=== PATIENT | female | born 1950 | race African-American/Black ===

== ENCOUNTER 2016-09-12 11:57 | Inpatient (IN) | payer MEDICARE, MEDICAID ==
[~2016-09-12] VITALS: Ht 160 cm; Wt 72.5 kg
[~2016-09-12 11:57] MED LIST: AMLO10TA2 PO; BACL-19 PO; FLUT1DIS IH; HYDR-3138 PO; HYDR12.58 PO; HYDR1TAB12 PO; IPRA3AMP NEB; NEBI5TAB2 PO; PRED10TA PO; ROSU10TA PO; TIOT4MIS2 INH; WARF4TAB7 PO
[2016-09-12] MEDS ORDERED: SODIUM CHLORIDE 0.9% 1,000 ML IV ONE (13:12)
[2016-09-12] MEDS ORDERED: methylPREDNISolone SOD SUCC 125 MG/2 ML IVP ONE (13:30)
[2016-09-12] MEDS ORDERED: SODIUM CHLORIDE FLUSH 10ML SYR IVF ONE (13:30)
[2016-09-12] MEDS ORDERED: MORPHINE SULFATE 4 MG/ML, 1ML IVPush PRN (13:30)
[2016-09-12] MEDS ORDERED: BENZONATATE 100 MG CAPSULE PO ONE (13:30)
[2016-09-12] MEDS ORDERED: ALBUTEROL SULFATE 2.5 MG/3 ML NPPB ONE (13:30)
[2016-09-12] MEDS ORDERED: ALBUTEROL SULFATE 2.5 MG/3 ML ONE (13:35)
[2016-09-12 13:40] LABS: BLOOD UREA NITROGEN 9 mg/dL (7-18)
[2016-09-12 13:46] LABS: IS PT STATUS REG ER OR PRE ER? YES
[2016-09-12] MEDS ORDERED: methylPREDNISolone SOD SUCC 125 MG/2 ML ONE (14:16)
[2016-09-12] MEDS ORDERED: POTASSIUM CHLORIDE 20 MEQ TAB.ER.PRT PO ONE (14:30)
[2016-09-12] MEDS ORDERED: HYDROcodone/APAP 5/325 TABLET ONE (14:41)
[2016-09-12] MEDS ORDERED: POTASSIUM CHLORIDE 20 MEQ TAB.ER.PRT ONE (14:41)
[2016-09-12] MEDS ORDERED: GUAIFENESIN/DM 200-20MG, 10ML UDC PO PRN (15:00)
[2016-09-12] MEDS ORDERED: BISACODYL 10 MG SUPP PR PRN (15:00)
[2016-09-12] MEDS ORDERED: PROMETHAZINE 25 MG/ML, 1ML IM PRN (15:00)
[2016-09-12] MEDS ORDERED: ZOLPIDEM 5MG TABLET PO PRN (15:00)
[2016-09-12] MEDS ORDERED: HYDROcodone/APAP 5/325 TABLET PO ONE (15:00)
[2016-09-12] MEDS ORDERED: ACETAMINOPHEN 325 MG TABLET PO PRN (15:00)
[2016-09-12] MEDS ORDERED: morphine SULFATE 10 MG/ML, 1ML IVPush PRN (15:00)
[2016-09-12] MEDS ORDERED: POLYETHYLENE GLYCOL 17 GM PACKET PO PRN (15:00)
[2016-09-12] MEDS ORDERED: DOCUSATE 100 MG CAPSULE PO PRN (15:00)
[2016-09-12] MEDS ORDERED: ONDANSETRON 2MG/ML, 2ML IVPush PRN (15:00)
[2016-09-12] MEDS ORDERED: ALBUTEROL/IPRATROPIUM 2.5MG/0.5MG, 3 ML ONE (15:56)
[2016-09-12 16:15] VITALS: BP 127/70
[2016-09-12] MEDS: BENZONATATE 100 MG CAPSULE PO SCH ×2 (16:38→20:14)
[2016-09-12] MEDS: methylPREDNISolone SOD SUCC 125 MG/2 ML IVPush SCH ×2 (16:38→22:07)
[2016-09-12] MEDS: DOXYCYCLINE 100 MG in DEXTROSE 5% 250 ML IV SCH (16:38)
[2016-09-12] MEDS: WARFARIN 2 MG TABLET PO-COUM SCH (17:59)
[2016-09-12 19:31] VITALS: BP 123/61
[2016-09-12] MEDS: ALBUTEROL/IPRATROPIUM 2.5MG/0.5MG, 3 ML NPPB SCH ×2 (20:00→22:34)
[2016-09-12] MEDS: SODIUM CHLORIDE FLUSH 3ML SYRINGE IVF SCH (20:13)
[2016-09-12] MEDS: ATORVASTATIN 20 MG TABLET PO SCH (20:14)
[2016-09-12] MEDS: FLUTICASONE NASAL SPRAY 16GM NAS SCH (20:14)
[2016-09-13 01:36] VITALS: BP 118/59
[2016-09-13] MEDS: DOXYCYCLINE 100 MG in DEXTROSE 5% 250 ML IV SCH (02:05)
[2016-09-13] MEDS: methylPREDNISolone SOD SUCC 125 MG/2 ML IVPush SCH ×4 (03:51→22:11)
[2016-09-13 05:10] LABS: ASPARTATE AMINO TRANSFERASE 26 U/L (15-37); BLOOD UREA NITROGEN 17 mg/dL (7-18)
[2016-09-13 06:46] VITALS: BP 128/75
[2016-09-13] MEDS: ALBUTEROL/IPRATROPIUM 2.5MG/0.5MG, 3 ML NPPB SCH ×4 (07:00→19:51)
[2016-09-13] MEDS: SODIUM CHLORIDE FLUSH 3ML SYRINGE IVF SCH ×2 (09:00→20:33)
[2016-09-13] MEDS: FLUTICASONE NASAL SPRAY 16GM NAS SCH ×2 (10:02→20:33)
[2016-09-13] MEDS: AMLODIPINE 5 MG TABLET PO SCH (10:02)
[2016-09-13] MEDS: HYDROCHLOROTHIAZIDE 12.5 MG CAPSULE PO SCH (10:03)
[2016-09-13] MEDS: CETIRIZINE 10 MG TABLET PO SCH (10:03)
[2016-09-13] MEDS: BENZONATATE 100 MG CAPSULE PO SCH ×3 (10:09→20:33)
[2016-09-13] MEDS: FLUTICASONE/VILANTEROL 200-25MCG/INH INH SCH (10:23)
[2016-09-13] MEDS: DOXYCYCLINE 100MG TABLET PO SCH ×2 (12:07→20:33)
[2016-09-13 16:09] VITALS: BP 121/63
[2016-09-13] MEDS: HYDROcodone/APAP 5/325 TABLET PO PRN (16:37)
[2016-09-13] MEDS: WARFARIN 2 MG TABLET PO-COUM SCH (17:45)
[2016-09-13 19:30] VITALS: BP 133/73
[2016-09-13] MEDS: ATORVASTATIN 20 MG TABLET PO SCH (20:33)
[2016-09-14 02:12] VITALS: BP 119/64
[2016-09-14] MEDS: methylPREDNISolone SOD SUCC 125 MG/2 ML IVPush SCH ×2 (04:11→10:23)
[2016-09-14] MEDS: ALBUTEROL/IPRATROPIUM 2.5MG/0.5MG, 3 ML NPPB SCH ×3 (07:00→14:39)
[2016-09-14 07:29] VITALS: BP 114/55
[2016-09-14] MEDS: FLUTICASONE NASAL SPRAY 16GM NAS SCH (08:53)
[2016-09-14] MEDS: SODIUM CHLORIDE FLUSH 3ML SYRINGE IVF SCH (08:54)
[2016-09-14] MEDS: CETIRIZINE 10 MG TABLET PO SCH (08:54)
[2016-09-14] MEDS: HYDROCHLOROTHIAZIDE 12.5 MG CAPSULE PO SCH (08:54)
[2016-09-14] MEDS: AMLODIPINE 5 MG TABLET PO SCH (08:54)
[2016-09-14] MEDS: BENZONATATE 100 MG CAPSULE PO SCH (08:54)
[2016-09-14] MEDS: FLUTICASONE/VILANTEROL 200-25MCG/INH INH SCH (08:54)
[2016-09-14] MEDS: DOXYCYCLINE 100MG TABLET PO SCH (08:54)
[2016-09-14] MEDS: HYDROcodone/APAP 5/325 TABLET PO PRN ×2 (08:54→12:47)
[2016-09-14] MEDS ORDERED: METH4TAB2 PO (11:13)
[2016-09-14] MEDS ORDERED: CETI10CA PO (11:13)
[2016-09-14] MEDS ORDERED: BENZ100C4 PO (11:13)
[2016-09-14] MEDS ORDERED: GUAI5SYR PO (11:13)
[2016-09-14] MEDS ORDERED: DOXY100C2 PO (11:13)
[2016-09-14 12:49] VITALS: BP 160/77
== END 2016-09-14 15:30 | disposition home or self-care (01) | DRG 189 ==
LOC: ED 14:32 → EDIP 14:34 → ED 14:56 → SUATTDRO 14:58 → 3NW 15:50 → DCLOUNGE 09-14 15:22
DX: J96.21 Acute and chronic respiratory failure with hypoxia (principal); J44.0 Chronic obstructive pulmonary disease with (acute) lower respiratory infection; J44.1 Chronic obstructive pulmonary disease with (acute) exacerbation; D86.9 Sarcoidosis, unspecified; E78.5 Hyperlipidemia, unspecified; E87.6 Hypokalemia; I11.0 Hypertensive heart disease with heart failure; G89.29 Other chronic pain; M54.9 Dorsalgia, unspecified; I50.9 Heart failure, unspecified; J20.9 Acute bronchitis, unspecified; Z79.01 Long term (current) use of anticoagulants; Z82.49 Family history of ischemic heart disease and other diseases of the circulatory system; Z86.711 Personal history of pulmonary embolism; Z86.718 Personal history of other venous thrombosis and embolism; Z87.891 Personal history of nicotine dependence; Z99.81 Dependence on supplemental oxygen; Z79.899 Other long term (current) drug therapy; Z80.42 Family history of malignant neoplasm of prostate
CPT/HCPCS: 36415; 71010; 80048; 80053; 82040; 83735; 83880; 84484; 85025; 85610; 87070; 87205; 93005; 94640; 96374; J7060; J7613; J7620; J2930; J7030

== ENCOUNTER 2016-09-20 13:05 | Inpatient (IN) | payer MEDICARE, MEDICAID ==
[~2016-09-20] VITALS: Ht 160 cm; Wt 73.2 kg
[~2016-09-20 13:05] MED LIST changes: +BENZ100C4 PO; +CETI10CA PO; +DOXY100C2 PO; +GUAI5SYR PO; +METH4TAB2 PO
[2016-09-20] MEDS ORDERED: ONDANSETRON 2MG/ML, 2ML IVPush ONE (13:30)
[2016-09-20] MEDS ORDERED: SODIUM CHLORIDE 0.9% 1,000ML IVBOLUS ONE (13:30)
[2016-09-20] MEDS ORDERED: HYDROmorphone 1 MG/ML, 1ML IVPush PRN (13:30)
[2016-09-20] MEDS ORDERED: SODIUM CHLORIDE FLUSH 10ML SYR IVF ONE (13:30)
[2016-09-20] MEDS ORDERED: ONDANSETRON 2MG/ML, 2ML ONE (13:31)
[2016-09-20] MEDS ORDERED: HYDROmorphone 1 MG/ML, 1ML ONE (13:31)
[2016-09-20 13:39] LABS: PATH.CAST-FLAG NOT PRESENT; SPERM-FLAG NOT PRESENT; SRC-FLAG NOT PRESENT; XTAL-FLAG NOT PRESENT; YLC-FLAG NOT PRESENT
[2016-09-20 14:03] LABS: ASPARTATE AMINO TRANSFERASE 19 U/L (15-37); BLOOD UREA NITROGEN 12 mg/dL (7-18)
[2016-09-20] MEDS ORDERED: OMNIPAQUE 350 MG/ML, 100ML BOTTLE ONE (14:47)
[2016-09-20] MEDS ORDERED: ALBU8.5H3 INH (16:27)
[2016-09-20] MEDS ORDERED: BACL-19 PO (16:27)
[2016-09-20] MEDS ORDERED: FLUT1AER INH (16:27)
[2016-09-20] MEDS ORDERED: LABETALOL 5MG/ML, 20ML IVPush PRN (17:30)
[2016-09-20] MEDS ORDERED: ONDANSETRON 2MG/ML, 2ML IVPush PRN (17:30)
[2016-09-20] MEDS ORDERED: BISACODYL 10 MG SUPP PR PRN (17:30)
[2016-09-20] MEDS ORDERED: ACETAMINOPHEN 325 MG TABLET PO PRN (17:30)
[2016-09-20] MEDS ORDERED: DOCUSATE 100 MG CAPSULE PO PRN (17:30)
[2016-09-20] MEDS: morphine SULFATE 10 MG/ML, 1ML IVPush PRN ×2 (17:55→21:08)
[2016-09-20] MEDS ORDERED: WARFARIN 1 MG TABLET PO-COUM ONE (18:00)
[2016-09-20 18:12] VITALS: BP 142/76
[2016-09-20] MEDS: CEFTRIAXONE PMX 1GM/50ML 50 ML IV SCH (18:49)
[2016-09-20 19:35] VITALS: BP 137/71
[2016-09-20] MEDS: AZITHROMYCIN 500 MG in SODIUM CHLORIDE 0.9% 250 ML IV SCH (20:29)
[2016-09-20] MEDS: ROSUVASTATIN CALCIUM 10 MG PO SCH (21:00)
[2016-09-20] MEDS ORDERED: ALBUTEROL SULFATE 2.5 MG/3 ML NPPB PRN (21:00)
[2016-09-20] MEDS ORDERED: TEMPLATE NON-FORMULARY MED. (Warfarin Sodium** 2 MG) PO SCH (21:00)
[2016-09-20] MEDS: GUAIFENESIN ER 600 MG TABLET PO SCH (21:08)
[2016-09-20] MEDS: SODIUM CHLORIDE FLUSH 3ML SYRINGE IVF SCH (21:08)
[2016-09-21 02:00] VITALS: BP 123/67
[2016-09-21] MEDS: morphine SULFATE 10 MG/ML, 1ML IVPush PRN ×2 (04:30→08:36)
[2016-09-21 05:29] LABS: BLOOD UREA NITROGEN 17 mg/dL (7-18)
[2016-09-21 06:51] VITALS: BP 133/65
[2016-09-21] MEDS: ALBUTEROL/IPRATROPIUM 2.5MG/0.5MG, 3 ML NPPB SCH ×4 (07:45→18:50)
[2016-09-21] MEDS: GUAIFENESIN ER 600 MG TABLET PO SCH ×2 (08:34→21:51)
[2016-09-21] MEDS: SODIUM CHLORIDE FLUSH 3ML SYRINGE IVF SCH ×2 (08:34→21:00)
[2016-09-21] MEDS: FUROSEMIDE 40 MG/4 ML IV SCH (08:35)
[2016-09-21] MEDS: BACLOFEN 10 MG TABLET PO SCH (08:35)
[2016-09-21] MEDS: AMLODIPINE 5 MG TABLET PO SCH (08:41)
[2016-09-21] MEDS ORDERED: (Fluticasone/Salmeterol** (Advair 100-50 Diskus**) 1 PUFF) IH SCH (09:00)
[2016-09-21] MEDS: FLUTICASONE/VILANTEROL 100-25MCG/INH INH SCH (11:08)
[2016-09-21 13:18] VITALS: BP 123/62
[2016-09-21] MEDS: CEFTRIAXONE PMX 1GM/50ML 50 ML IV SCH (16:50)
[2016-09-21] MEDS ORDERED: WARFARIN 1 MG TABLET PO-COUM ONE (18:00)
[2016-09-21 19:26] VITALS: BP 122/67
[2016-09-21] MEDS: ROSUVASTATIN CALCIUM 10 MG PO SCH (21:00)
[2016-09-21] MEDS ORDERED: ATORVASTATIN 20 MG TABLET PO SCH (21:00)
[2016-09-21] MEDS: AZITHROMYCIN 500 MG in SODIUM CHLORIDE 0.9% 250 ML IV SCH (21:51)
[2016-09-22 02:00] VITALS: BP 125/63
[2016-09-22 05:13] LABS: BLOOD UREA NITROGEN 21 mg/dL (7-18)
[2016-09-22] MEDS: HYDROcodone/APAP 5/325 TABLET PO PRN ×3 (05:19→17:38)
[2016-09-22 06:30] VITALS: BP 115/65
[2016-09-22] MEDS: ALBUTEROL/IPRATROPIUM 2.5MG/0.5MG, 3 ML NPPB SCH ×4 (07:30→18:54)
[2016-09-22] MEDS: FLUTICASONE/VILANTEROL 100-25MCG/INH INH SCH (07:56)
[2016-09-22] MEDS: GUAIFENESIN ER 600 MG TABLET PO SCH ×2 (07:57→20:05)
[2016-09-22] MEDS: FUROSEMIDE 40 MG/4 ML IV SCH (07:57)
[2016-09-22] MEDS: SODIUM CHLORIDE FLUSH 3ML SYRINGE IVF SCH ×2 (07:57→20:05)
[2016-09-22] MEDS: BACLOFEN 10 MG TABLET PO SCH (07:57)
[2016-09-22] MEDS: AMLODIPINE 5 MG TABLET PO SCH (07:58)
[2016-09-22] MEDS ORDERED: IPRATROPIUM 0.5 MG/2.5 ML INHA NPPB SCH (09:00)
[2016-09-22] MEDS ORDERED: FLUTICASONE/VILANTEROL 100-25MCG/INH INH SCH (09:00)
[2016-09-22] MEDS: POLYETHYLENE GLYCOL 17 GM PACKET PO PRN (10:59)
[2016-09-22 13:57] VITALS: BP 142/81
[2016-09-22] MEDS: CEFTRIAXONE PMX 1GM/50ML 50 ML IV SCH (17:37)
[2016-09-22] MEDS ORDERED: WARFARIN 1 MG TABLET PO-COUM ONE (18:00)
[2016-09-22 19:07] VITALS: BP 138/75
[2016-09-22] MEDS: SENNA/DOCUSATE TABLET PO SCH (20:05)
[2016-09-22] MEDS: AZITHROMYCIN 500 MG in SODIUM CHLORIDE 0.9% 250 ML IV SCH (20:05)
[2016-09-22] MEDS: ATORVASTATIN 20 MG TABLET PO SCH (20:05)
[2016-09-23 01:31] VITALS: BP 129/69
[2016-09-23] MEDS: HYDROcodone/APAP 5/325 TABLET PO PRN ×2 (06:46→16:34)
[2016-09-23] MEDS: ALBUTEROL/IPRATROPIUM 2.5MG/0.5MG, 3 ML NPPB SCH ×4 (07:44→19:23)
[2016-09-23 07:46] VITALS: BP 131/64
[2016-09-23] MEDS: FUROSEMIDE 40 MG/4 ML IV SCH (08:22)
[2016-09-23] MEDS: FLUTICASONE/VILANTEROL 100-25MCG/INH INH SCH (08:22)
[2016-09-23] MEDS: GUAIFENESIN ER 600 MG TABLET PO SCH ×2 (08:23→20:53)
[2016-09-23] MEDS: SENNA/DOCUSATE TABLET PO SCH ×2 (08:23→20:53)
[2016-09-23] MEDS: BACLOFEN 10 MG TABLET PO SCH (08:23)
[2016-09-23] MEDS: AMLODIPINE 5 MG TABLET PO SCH (08:23)
[2016-09-23] MEDS: SODIUM CHLORIDE FLUSH 3ML SYRINGE IVF SCH ×2 (08:24→21:00)
[2016-09-23 12:45] VITALS: BP 115/68
[2016-09-23] MEDS: POLYETHYLENE GLYCOL 17 GM PACKET PO PRN (16:34)
[2016-09-23] MEDS: CEFTRIAXONE PMX 1GM/50ML 50 ML IV SCH (17:36)
[2016-09-23] MEDS ORDERED: WARFARIN 2 MG TABLET PO-COUM ONE (18:00)
[2016-09-23] MEDS: ATORVASTATIN 20 MG TABLET PO SCH (20:53)
[2016-09-23] MEDS: AZITHROMYCIN 500 MG in SODIUM CHLORIDE 0.9% 250 ML IV SCH (20:53)
[2016-09-23 21:07] VITALS: BP 124/67
[2016-09-24 02:47] VITALS: BP 132/72
[2016-09-24] MEDS: HYDROcodone/APAP 5/325 TABLET PO PRN (02:53)
[2016-09-24] MEDS: ALBUTEROL/IPRATROPIUM 2.5MG/0.5MG, 3 ML NPPB SCH ×3 (07:34→12:17)
[2016-09-24 07:39] VITALS: BP 150/81
[2016-09-24] MEDS: FUROSEMIDE 40 MG/4 ML IV SCH (08:30)
[2016-09-24] MEDS: GUAIFENESIN ER 600 MG TABLET PO SCH (08:31)
[2016-09-24] MEDS: AMLODIPINE 5 MG TABLET PO SCH (08:31)
[2016-09-24] MEDS: FLUTICASONE/VILANTEROL 100-25MCG/INH INH SCH (08:31)
[2016-09-24] MEDS: SENNA/DOCUSATE TABLET PO SCH (08:31)
[2016-09-24] MEDS: BACLOFEN 10 MG TABLET PO SCH (08:31)
[2016-09-24] MEDS: SODIUM CHLORIDE FLUSH 3ML SYRINGE IVF SCH (08:32)
[2016-09-24] MEDS ORDERED: SENN1TAB7 PO (10:05)
[2016-09-24] MEDS ORDERED: CEFD300C37 PO (10:05)
[2016-09-24] MEDS ORDERED: GUAI600T22 PO (10:05)
[2016-09-24] MEDS ORDERED: DOXY-168 PO (10:05)
[2016-09-24] MEDS ORDERED: PRED5TAB PO (10:05)
[2016-09-24] MEDS ORDERED: OXYC-229 PO (10:06)
== END 2016-09-24 12:50 | disposition home or self-care (01) | DRG 292 ==
LOC: ED 13:54 → EDIP 16:19 → 3NE 17:28
PROVIDERS: ADMIT Internal Medicine; ATTEND Internal Medicine
DX: I11.0 Hypertensive heart disease with heart failure (principal); I31.3 Pericardial effusion (noninflammatory); J44.0 Chronic obstructive pulmonary disease with (acute) lower respiratory infection; J44.1 Chronic obstructive pulmonary disease with (acute) exacerbation; K42.9 Umbilical hernia without obstruction or gangrene; D25.9 Leiomyoma of uterus, unspecified; D86.9 Sarcoidosis, unspecified; I27.2 Other secondary pulmonary hypertension; I50.9 Heart failure, unspecified; G89.29 Other chronic pain; J20.9 Acute bronchitis, unspecified; M54.9 Dorsalgia, unspecified; Z79.899 Other long term (current) drug therapy; Z79.01 Long term (current) use of anticoagulants; Z87.891 Personal history of nicotine dependence; Z82.49 Family history of ischemic heart disease and other diseases of the circulatory system; Z86.711 Personal history of pulmonary embolism; Z86.718 Personal history of other venous thrombosis and embolism; Z99.81 Dependence on supplemental oxygen; Z80.9 Family history of malignant neoplasm, unspecified
CPT/HCPCS: 36415; 71010; 74177; 80048; 80053; 81001; 83605; 83690; 83735; 84100; 85025; 85610; 85651; 86140; 87040; 87070; 87077; 87086; 87186; 87205; 93306; 94640; 96361; 96374; 96375; J0456; J0696; J1170; J1940; J2405; J7620; Q9967; J2270; J7030; J7050; J7512

== ENCOUNTER 2018-03-06 18:37 | Inpatient (IN) | payer MEDICARE, MEDICAID ==
[~2018-03-06] VITALS: Ht 160 cm; Wt 75.3 kg
[~2018-03-06 18:37] MED LIST changes: +ALBU8.5H8 INH; -AMLO10TA2 PO; +AMLO10TA6 PO; +BENZ-17 PO; -BENZ100C4 PO; +BRIN8DRO OP; +CEFD300C37 PO; +DOXY100C15 PO; +DOXY100T PO; +DOXY100T10 PO; +FLUT1AER INH; +FLUT9.9S INH; +FURO-93 PO; +GUAI600T31 PO; -HYDR-3138 PO; +HYDR-3237 PO; -HYDR12.58 PO; +HYDROCHLOROTH12.5 MG PO; -IPRA3AMP NEB; +IPRA3AMP30 NEB; +LATA2.5D2 OP; -NEBI5TAB2 PO; +NEBI5TAB3 PO; +OXYC-307 PO; +POTA10TA11 PO; +PRED5TAB PO; +SENN1TAB8 PO; +WARF4TAB65 PO; -WARF4TAB7 PO
[2018-03-06] MEDS ORDERED: ACETAMINOPHEN 500 MG TABLET ONE (18:51)
[2018-03-06] MEDS ORDERED: ACETAMINOPHEN 500 MG TABLET PO ONE (19:00)
[2018-03-06 19:17] LABS: MEAN CORPUSCULAR HEMOGLOBIN 29.6 pg (27.0-34.8); MEAN CORPUSCULAR HGB CONC 33.3 g/dL (32.4-35.8); MEAN CORPUSCULAR VOLUME 88.8 fL (80-100); MEAN PLATELET VOLUME 9.8 fL (7.4-10.4); PLATELET COUNT 164 x10^3/uL (130-400); RED BLOOD COUNT 5.08 x10^6/uL (3.82-5.3); RED CELL DISTRIBUTION WIDTH 14.8 % (9.6-15.2)
[2018-03-06 19:27] LABS: ALANINE AMINOTRANSFERASE 38 U/L (12-78); ALBUMIN 3.6 g/dL (3.4-5.0); ANION GAP 10 mmol/L (5-15); CALCIUM 8.8 mg/dL (8.5-10.1); CHLORIDE 109 mmol/L (98-107); CREATININE 0.97 mg/dL (0.55-1.02)
[2018-03-06 19:29] LABS: ALKALINE PHOSPHATASE 89 U/L (45-117); BILIRUBIN,TOTAL 0.6 mg/dL (0.2-1.0); TOTAL PROTEIN 7.4 g/dL (6.4-8.2)
[2018-03-06 19:30] LABS: INTERNATIONAL NORMALIZED RATIO 2.15 (0.93-1.1); PROTHROMBIN TIME 22.1 Seconds (9.6-11.5)
[2018-03-06] MEDS ORDERED: CEFTRIAXONE PMX 1GM/50ML 50 ML IV ONE ×2 (19:30→21:00)
[2018-03-06] MEDS ORDERED: AZITHROMYCIN 500 MG in SODIUM CHLORIDE 0.9% 250 ML IV ONE (19:30)
[2018-03-06 19:34] LABS: RAPID INFLUENZA A Negative (Negative); RAPID INFLUENZA B Negative (Negative)
[2018-03-06] MEDS ORDERED: CEFTRIAXONE PMX 1GM/50ML 50 ML ONE (19:34)
[2018-03-06 19:49] LABS: BASOPHILS # (AUTO) 0.03 x10^3/uL (0-0.1); BASOPHILS % (AUTO) 0 % (0-1); EOSINOPHILS # (AUTO) 0.01 x10^3/uL (0-0.4); EOSINOPHILS % (AUTO) 0 % (1-7); LYMPHOCYTES # (AUTO) 0.76 x10^3/uL (1-3.4); LYMPHOCYTES % (AUTO) 4 % (22-44); MD SCAN; MONOCYTES # (AUTO) 0.52 x10^3/uL (0.2-0.8); MONOCYTES % (AUTO) 3 % (2-9); NEUTROPHILS # (AUTO) 17.64 x10^3/uL (1.8-6.8); NEUTROPHILS % (AUTO) 93 % (42-75)
[2018-03-06] MEDS ORDERED: POTASSIUM CHLORIDE 40 MEQ in SODIUM CHLORIDE 0.9% 500 ML IV ONE (20:00)
[2018-03-06] MEDS ORDERED: SODIUM CHLORIDE 0.9% 1,000 ML IV SCH (20:51)
[2018-03-06] MEDS ORDERED: hydrALAzine 20 MG/ML, 1ML IVPush PRN (21:00)
[2018-03-06] MEDS ORDERED: GABAPENTIN 300 MG CAPSULE PO PRN (21:00)
[2018-03-06] MEDS ORDERED: ONDANSETRON ODT 4 MG PO PRN (21:00)
[2018-03-06] MEDS ORDERED: PROMETHAZINE 25 MG/ML, 1ML IM PRN (21:00)
[2018-03-06] MEDS ORDERED: ONDANSETRON 2MG/ML, 2ML IVPush PRN (21:00)
[2018-03-06] MEDS ORDERED: POLYETHYLENE GLYCOL 17 GM PACKET PO PRN (21:00)
[2018-03-06] MEDS ORDERED: OXYcodone IR 5MG TABLET PO PRN (21:00)
[2018-03-06] MEDS ORDERED: DOCUSATE 100 MG CAPSULE PO PRN (21:00)
[2018-03-06] MEDS ORDERED: POTASSIUM CHLORIDE 20 MEQ TAB.ER.PRT PO ONE (21:00)
[2018-03-06] MEDS ORDERED: BISACODYL 10 MG SUPP PR PRN (21:00)
[2018-03-06] MEDS ORDERED: morphine SULFATE 10 MG/ML, 1ML IVPush PRN (21:00)
[2018-03-06] MEDS ORDERED: LABETALOL 5MG/ML, 20ML IVPush PRN (21:00)
[2018-03-06] MEDS ORDERED: ALBUTEROL SULFATE 2.5MG/0.5ML NPPB SCH (21:30)
[2018-03-06] MEDS ORDERED: ALBUTEROL/IPRATROPIUM 2.5MG/0.5MG, 3 ML NPPB PRN (21:30)
[2018-03-06] MEDS ORDERED: ALBUTEROL/IPRATROPIUM 2.5MG/0.5MG, 3 ML ONE (21:33)
[2018-03-06 21:35] LABS: FREE T4 (FREE THYROXINE) 0.98 ng/dL (0.76-1.46); THYROID STIMULATING HORMONE 0.718 mIU/L (0.358-3.740)
[2018-03-06 21:47] LABS: HEMOGLOBIN A1C 6.8 % (4.2-6.3)
[2018-03-06] MEDS: GUAIFENESIN ER 600 MG TABLET PO SCH (22:56)
[2018-03-06] MEDS: HEPARIN 5,000 UNITS/ML, 1ML SQ SCH (22:57)
[2018-03-06] MEDS: LATANOPROST OPHTH 0.005%, 2.5ML OP SCH (23:42)
[2018-03-06 23:57] VITALS: BP 114/63
[2018-03-07] MEDS: ALBUTEROL/IPRATROPIUM 2.5MG/0.5MG, 3 ML NPPB SCH ×4 (03:15→21:00)
[2018-03-07 03:55] VITALS: BP 112/58
[2018-03-07 05:23] LABS: MEAN CORPUSCULAR HEMOGLOBIN 29.3 pg (27.0-34.8); MEAN CORPUSCULAR HGB CONC 32.9 g/dL (32.4-35.8); MEAN CORPUSCULAR VOLUME 89.2 fL (80-100); MEAN PLATELET VOLUME 10.1 fL (7.4-10.4); PLATELET COUNT 162 x10^3/uL (130-400); RED BLOOD COUNT 4.64 x10^6/uL (3.82-5.3); RED CELL DISTRIBUTION WIDTH 15.1 % (9.6-15.2)
[2018-03-07 05:43] LABS: CHLORIDE 109 mmol/L (98-107)
[2018-03-07 05:52] LABS: ALANINE AMINOTRANSFERASE 29 U/L (12-78); ALBUMIN 3.2 g/dL (3.4-5.0); ALKALINE PHOSPHATASE 69 U/L (45-117); ANION GAP 12 mmol/L (5-15); BILIRUBIN,TOTAL 0.8 mg/dL (0.2-1.0); CALCIUM 8.1 mg/dL (8.5-10.1); CHOLESTEROL, TOTAL 83 mg/dL (140-239); CREATININE 0.97 mg/dL (0.55-1.02); HDL CHOL % 49 % (28-40); HDL CHOLESTEROL (DIRECT) 41 mg/dL (40-60); LDL CHOLESTEROL,CALCULATED 32 mg/dL (54-169); LDL/HDL RATIO 0.8 (0.5-3.0); TOTAL PROTEIN 6.5 g/dL (6.4-8.2); TRIGLYCERIDES 49 mg/dL (50-200); VLDL CHOLESTEROL 10 mg/dL (0-25)
[2018-03-07 05:53] LABS: MD YES
[2018-03-07 05:55] LABS: ANISOCYTOSIS 1+; BAND#(MANUAL) 3.74 x10^3/uL; BANDS%(MANUAL) 14 % (0-7); LYMPHS% (MANUAL) 6 % (22-44); MONOS#(MANUAL) 0.27 x10^3/uL (0.3-2.7); MONOS% (MANUAL) 1 % (2-9); SEG#(MANUAL) 21.09 x10^3/uL (1.8-6.8); SEGS% (MANUAL) 79 % (42-75)
[2018-03-07 05:56] LABS: <PLATELET ESTIMATE> ADEQUATE; <PLT MORPHOLOGY> NORMAL PLT MORPH
[2018-03-07 06:48] VITALS: BP 101/51
[2018-03-07] MEDS: GUAIFENESIN ER 600 MG TABLET PO SCH ×2 (07:47→20:46)
[2018-03-07] MEDS: AMLODIPINE 10 MG TAB PO SCH (07:47)
[2018-03-07] MEDS: HEPARIN 5,000 UNITS/ML, 1ML SQ SCH ×3 (07:47→23:04)
[2018-03-07] MEDS: HYDROCHLOROTHIAZIDE 12.5 MG CAPSULE PO SCH (07:47)
[2018-03-07] MEDS ORDERED: FLUTICASONE/VILANTEROL 100-25MCG/INH INH SCH (09:00)
[2018-03-07] MEDS ORDERED: TIOTROPIUM BROMIDE 18 MCG INH SCH (09:00)
[2018-03-07] MEDS: BUDESONIDE 0.5 MG/2 ML INHA NPPB SCH ×2 (09:00→21:00)
[2018-03-07] MEDS: FLUTICASONE NASAL SPRAY 16GM NAS SCH (10:03)
[2018-03-07] MEDS ORDERED: OMNIPAQUE 350 MG/ML, 75ML BOTTLE ONE (11:13)
[2018-03-07] MEDS: methylPREDNISolone SOD SUCC 125 MG/2 ML IVPush SCH ×3 (11:56→22:04)
[2018-03-07 12:11] VITALS: BP 120/62
[2018-03-07] MEDS ORDERED: AZITHROMYCIN 500 MG in SODIUM CHLORIDE 0.9% 250 ML IV SCH (17:00)
[2018-03-07] MEDS ORDERED: CEFTRIAXONE PMX 2GM/50ML 50 ML IV SCH (19:00)
[2018-03-07 19:48] VITALS: BP 100/56
[2018-03-07] MEDS: ATORVASTATIN 20 MG TABLET PO SCH (20:46)
[2018-03-07] MEDS: LATANOPROST OPHTH 0.005%, 2.5ML OP SCH (21:03)
[2018-03-08 02:28] VITALS: BP 106/64
[2018-03-08] MEDS: ALBUTEROL/IPRATROPIUM 2.5MG/0.5MG, 3 ML NPPB SCH ×4 (03:00→20:30)
[2018-03-08] MEDS: methylPREDNISolone SOD SUCC 125 MG/2 ML IVPush SCH (04:43)
[2018-03-08 06:14] LABS: ANION GAP 8 mmol/L (5-15); CALCIUM 9.5 mg/dL (8.5-10.1); CHLORIDE 112 mmol/L (98-107)
[2018-03-08 06:18] LABS: MEAN CORPUSCULAR HEMOGLOBIN 31.1 pg (27.0-34.8); MEAN CORPUSCULAR HGB CONC 34.1 g/dL (32.4-35.8); MEAN CORPUSCULAR VOLUME 91.1 fL (80-100); PLATELET COUNT 160 x10^3/uL (130-400)
[2018-03-08 07:15] VITALS: BP 105/63
[2018-03-08] MEDS: BUDESONIDE 0.5 MG/2 ML INHA NPPB SCH ×2 (07:18→20:30)
[2018-03-08 08:24] LABS: BASOPHILS # (AUTO) 0.08 x10^3/uL (0-0.1); BASOPHILS % (AUTO) 0 % (0-1); EOSINOPHILS % (AUTO) 0 % (1-7); LYMPHOCYTES # (AUTO) 0.74 x10^3/uL (1-3.4); LYMPHOCYTES % (AUTO) 4 % (22-44); MD SCAN; MONOCYTES # (AUTO) 0.21 x10^3/uL (0.2-0.8); MONOCYTES % (AUTO) 1 % (2-9); NEUTROPHILS # (AUTO) 19.65 x10^3/uL (1.8-6.8); NEUTROPHILS % (AUTO) 95 % (42-75)
[2018-03-08] MEDS: POTASSIUM CHLORIDE 10 MEQ in SODIUM CHLORIDE 0.9% 1,000 ML IV SCH ×2 (10:35→23:58)
[2018-03-08] MEDS: LEVOFLOXACIN/PMX 750MG/150ML 150 ML IV SCH (10:35)
[2018-03-08] MEDS: HYDROCHLOROTHIAZIDE 12.5 MG CAPSULE PO SCH (10:36)
[2018-03-08] MEDS: methylPREDNISolone SOD SUCC 40 MG/ML IVPush SCH ×2 (10:36→21:42)
[2018-03-08] MEDS: FLUTICASONE NASAL SPRAY 16GM NAS SCH (10:36)
[2018-03-08] MEDS: AMLODIPINE 10 MG TAB PO SCH (10:36)
[2018-03-08] MEDS: GUAIFENESIN ER 600 MG TABLET PO SCH ×2 (10:36→21:43)
[2018-03-08] MEDS: HEPARIN 5,000 UNITS/ML, 1ML SQ SCH ×4 (10:43→23:58)
[2018-03-08 13:25] VITALS: BP 121/67
[2018-03-08 18:43] VITALS: BP 127/65
[2018-03-08] MEDS: LATANOPROST OPHTH 0.005%, 2.5ML OP SCH (21:42)
[2018-03-08] MEDS: ATORVASTATIN 20 MG TABLET PO SCH (21:43)
[2018-03-09 00:53] VITALS: BP 117/65
[2018-03-09] MEDS: ALBUTEROL/IPRATROPIUM 2.5MG/0.5MG, 3 ML NPPB SCH ×4 (02:22→20:59)
[2018-03-09 06:31] LABS: ALBUMIN 2.9 g/dL (3.4-5.0); ANION GAP 8 mmol/L (5-15); CALCIUM 8.6 mg/dL (8.5-10.1); CHLORIDE 114 mmol/L (98-107); CREATININE 0.92 mg/dL (0.55-1.02)
[2018-03-09 07:04] LABS: MEAN CORPUSCULAR HEMOGLOBIN 31.5 pg (27.0-34.8); MEAN CORPUSCULAR HGB CONC 34.7 g/dL (32.4-35.8); MEAN CORPUSCULAR VOLUME 90.8 fL (80-100); PLATELET COUNT 169 x10^3/uL (130-400); RED BLOOD COUNT 4.21 x10^6/uL (3.82-5.3); RED CELL DISTRIBUTION WIDTH 15.2 % (9.6-15.2)
[2018-03-09 07:39] LABS: BASOPHILS % (AUTO) 0 % (0-1); EOSINOPHILS # (AUTO) 0.01 x10^3/uL (0-0.4); EOSINOPHILS % (AUTO) 0 % (1-7); LYMPHOCYTES # (AUTO) 0.25 x10^3/uL (1-3.4); LYMPHOCYTES % (AUTO) 2 % (22-44); MD SCAN; MONOCYTES # (AUTO) 0.19 x10^3/uL (0.2-0.8); MONOCYTES % (AUTO) 1 % (2-9); NEUTROPHILS # (AUTO) 16.63 x10^3/uL (1.8-6.8); NEUTROPHILS % (AUTO) 97 % (42-75)
[2018-03-09 07:40] VITALS: BP 144/81
[2018-03-09] MEDS: methylPREDNISolone SOD SUCC 40 MG/ML IVPush SCH (09:00)
[2018-03-09] MEDS: BUDESONIDE 0.5 MG/2 ML INHA NPPB SCH ×2 (09:00→20:59)
[2018-03-09] MEDS: FLUTICASONE NASAL SPRAY 16GM NAS SCH (09:59)
[2018-03-09] MEDS: GUAIFENESIN ER 600 MG TABLET PO SCH ×2 (09:59→20:12)
[2018-03-09] MEDS: AMLODIPINE 10 MG TAB PO SCH (09:59)
[2018-03-09] MEDS: HYDROCHLOROTHIAZIDE 12.5 MG CAPSULE PO SCH (10:00)
[2018-03-09] MEDS: HEPARIN 5,000 UNITS/ML, 1ML SQ SCH (10:00)
[2018-03-09] MEDS ORDERED: HYDROcodone/CHLORPHENIR ORAL SUSP PO PRN (13:00)
[2018-03-09] MEDS: POTASSIUM CHLORIDE 20 MEQ TAB.ER.PRT PO SCH ×2 (13:09→16:46)
[2018-03-09] MEDS: BENZONATATE 100 MG CAPSULE PO SCH ×3 (13:09→20:13)
[2018-03-09 13:39] VITALS: BP 135/74
[2018-03-09 19:53] VITALS: BP 128/72
[2018-03-09] MEDS: LATANOPROST OPHTH 0.005%, 2.5ML OP SCH (20:13)
[2018-03-09] MEDS: ATORVASTATIN 20 MG TABLET PO SCH (20:13)
[2018-03-10 00:36] VITALS: BP 113/71
[2018-03-10] MEDS: ALBUTEROL/IPRATROPIUM 2.5MG/0.5MG, 3 ML NPPB SCH ×2 (02:09→08:00)
[2018-03-10 05:41] LABS: ANION GAP 8 mmol/L (5-15); CALCIUM 8.8 mg/dL (8.5-10.1); CHLORIDE 110 mmol/L (98-107); CREATININE 0.87 mg/dL (0.55-1.02)
[2018-03-10 05:43] LABS: MEAN CORPUSCULAR HGB CONC 33.1 g/dL (32.4-35.8); MEAN CORPUSCULAR VOLUME 90.8 fL (80-100); MEAN PLATELET VOLUME 9.6 fL (7.4-10.4); PLATELET COUNT 203 x10^3/uL (130-400); RED BLOOD COUNT 4.48 x10^6/uL (3.82-5.3); RED CELL DISTRIBUTION WIDTH 15.6 % (9.6-15.2)
[2018-03-10 06:09] LABS: EOSINOPHILS % (AUTO) 0 % (1-7); LYMPHOCYTES % (AUTO) 4 % (22-44); MD NO; MONOCYTES % (AUTO) 4 % (2-9); NEUTROPHILS % (AUTO) 91 % (42-75)
[2018-03-10 06:10] LABS: BASOPHILS # (AUTO) 0.07 x10^3/uL (0-0.1); BASOPHILS % (AUTO) 1 % (0-1); LYMPHOCYTES # (AUTO) 0.65 x10^3/uL (1-3.4); MONOCYTES # (AUTO) 0.61 x10^3/uL (0.2-0.8); NEUTROPHILS # (AUTO) 14.09 x10^3/uL (1.8-6.8)
[2018-03-10 06:38] VITALS: BP 109/64
[2018-03-10] MEDS: BUDESONIDE 0.5 MG/2 ML INHA NPPB SCH (08:00)
[2018-03-10] MEDS: POTASSIUM CHLORIDE 20 MEQ TAB.ER.PRT PO SCH (08:00)
[2018-03-10] MEDS: FLUTICASONE NASAL SPRAY 16GM NAS SCH (08:00)
[2018-03-10] MEDS: BENZONATATE 100 MG CAPSULE PO SCH (08:00)
[2018-03-10] MEDS: GUAIFENESIN ER 600 MG TABLET PO SCH (08:00)
[2018-03-10] MEDS: HYDROCHLOROTHIAZIDE 12.5 MG CAPSULE PO SCH (08:01)
[2018-03-10] MEDS: AMLODIPINE 10 MG TAB PO SCH (08:01)
[2018-03-10] MEDS: LEVOFLOXACIN/PMX 750MG/150ML 150 ML IV SCH ×2 (08:39→08:53)
[2018-03-10] MEDS ORDERED: LEVOFLOXACIN 750 MG TABLET ONE (08:58)
[2018-03-10] MEDS ORDERED: LEVOFLOXACIN 750 MG TABLET PO ONE (09:00)
[2018-03-10] MEDS ORDERED: ACETAMINOPHEN 500 MG TABLET PO ONE (09:00)
[2018-03-10] MEDS ORDERED: BENZ100C PO (09:21)
[2018-03-10] MEDS ORDERED: LEVO750T26 PO (09:21)
== END 2018-03-10 11:20 | disposition home or self-care (01) | DRG 871 ==
LOC: ED 19:43 → 4WST 20:01 → UNDOADMIN 20:01 → UNDODISIN 20:43 → 4WST 21:13 → DCLOUNGE 03-10 11:03
PROVIDERS: ADMIT Internal Medicine; ATTEND Hospitalist
DX: A41.9 Sepsis, unspecified organism (principal); J96.21 Acute and chronic respiratory failure with hypoxia; J18.1 Lobar pneumonia, unspecified organism; D68.69 Other thrombophilia; J44.0 Chronic obstructive pulmonary disease with (acute) lower respiratory infection; D86.9 Sarcoidosis, unspecified; E78.5 Hyperlipidemia, unspecified; E87.6 Hypokalemia; G89.29 Other chronic pain; I11.0 Hypertensive heart disease with heart failure; I50.9 Heart failure, unspecified; K42.9 Umbilical hernia without obstruction or gangrene; Z79.01 Long term (current) use of anticoagulants; Z82.49 Family history of ischemic heart disease and other diseases of the circulatory system; Z86.711 Personal history of pulmonary embolism; Z86.718 Personal history of other venous thrombosis and embolism; Z87.891 Personal history of nicotine dependence
CPT/HCPCS: 36415; 71045; 71260; 80048; 80053; 80061; 82040; 83036; 83605; 83735; 84100; 84145; 84439; 84443; 85025; 85610; 85730; 87040; 87070; 87205; 87400; 93005; 93306; 94640; 96365; 96368; G0378; J0456; J0696; J1644; J1956; J3480; J7620; J7626; Q9967; J2920; J2930; J7030; J7040; J7050; J7512

== ENCOUNTER 2018-06-29 17:19 | Inpatient (IN) | payer MEDICARE, MEDICAID ==
[~2018-06-29] VITALS: Ht 160 cm; Wt 76.7 kg
[~2018-06-29 17:19] MED LIST changes: -AMLO10TA6 PO; +AMLO10TA8 PO; +BENZ100C PO; -HYDR1TAB12 PO; +HYDR1TAB13 PO; +LEVO750T26 PO; -ROSU10TA PO; +ROSU10TA2 PO; +SENN-177 PO; -SENN1TAB8 PO
[2018-06-29] MEDS ORDERED: ALBU18HF INH (17:44)
--- NOTE | 2018-06-29 17:45 | NUR ---
PT BIB [facility] FOR INCREASING SOB AND COUGH SINCE BEING DISCHARGED IN MARCH 2018. PT REPORTS FEVERS AND CHILLS AT HOME. PT ON MONITOR. ASSUMED CARE OF PT AT THIS TIME.
[2018-06-29] MEDS ORDERED: ALBUTEROL/IPRATROPIUM 2.5MG/0.5MG, 3 ML ONE (17:51)
[2018-06-29] MEDS ORDERED: ALBUTEROL/IPRATROPIUM 2.5MG/0.5MG, 3 ML NPPB SCH (18:00)
[2018-06-29 18:02] LABS: BASOPHILS # (AUTO) 0.01 x10^3/uL (0-0.1); BASOPHILS % (AUTO) 0 % (0-1); EOSINOPHILS # (AUTO) 0.02 x10^3/uL (0-0.4); EOSINOPHILS % (AUTO) 0 % (1-7); LYMPHOCYTES # (AUTO) 1.54 x10^3/uL (1-3.4); LYMPHOCYTES % (AUTO) 12 % (22-44); MD NO; MEAN CORPUSCULAR HEMOGLOBIN 29.3 pg (27.0-34.8); MEAN CORPUSCULAR HGB CONC 33.7 g/dL (32.4-35.8); MEAN PLATELET VOLUME 9.1 fL (7.4-10.4); MONOCYTES # (AUTO) 0.81 x10^3/uL (0.2-0.8); MONOCYTES % (AUTO) 6 % (2-9); NEUTROPHILS # (AUTO) 10.21 x10^3/uL (1.8-6.8); NEUTROPHILS % (AUTO) 81 % (42-75); PLATELET COUNT 208 x10^3/uL (130-400); RED BLOOD COUNT 5.02 x10^6/uL (3.82-5.3); RED CELL DISTRIBUTION WIDTH 14.7 % (9.6-15.2)
[2018-06-29 18:13] LABS: ALBUMIN 3.9 g/dL (3.4-5.0); ANION GAP 8 mmol/L (5-15); CALCIUM 9.1 mg/dL (8.5-10.1); CHLORIDE 107 mmol/L (98-107); CREATININE 0.92 mg/dL (0.55-1.02)
[2018-06-29 18:17] LABS: TROPONIN I < 0.015 ng/mL (0.000-0.045)
--- NOTE | 2018-06-29 18:46 | NUR ---
PT HAS FEVER OF 101.1, HR OF 100.
--- NOTE | 2018-06-29 18:59 | NUR ---
REPORT TO MARK SEGUNDO.
--- NOTE | 2018-06-29 19:05 | NUR ---
RECEIVED BS REPORT FROM RATNA SONG TO ASSUME PT. CARE. PT. RESTING ON GURNEY WITH MONITORS IN PLACE. NADN. NEW ORDERS RECEIVED FOR BC X 2 AND IV ABX.
[2018-06-29] MEDS ORDERED: CEFTRIAXONE PMX 1GM/50ML 50 ML ONE (19:14)
[2018-06-29] MEDS ORDERED: ACETAMINOPHEN 500 MG TABLET ONE (19:14)
[2018-06-29] MEDS ORDERED: POTASSIUM CHLORIDE 20 MEQ TAB.ER.PRT ONE (19:15)
--- NOTE | 2018-06-29 19:18 | NUR ---
LUISH AT . 2 SETS OF BLOOD CULTURES DRAWN.
[2018-06-29] MEDS ORDERED: ONDANSETRON ODT 4 MG PO PRN (19:30)
[2018-06-29] MEDS ORDERED: ACETAMINOPHEN 500 MG TABLET PO ONE (19:30)
[2018-06-29] MEDS ORDERED: POLYETHYLENE GLYCOL 17 GM PACKET PO PRN (19:30)
[2018-06-29] MEDS ORDERED: CEFTRIAXONE PMX 1GM/50ML 50 ML IV SCH ×2 (19:30)
[2018-06-29] MEDS ORDERED: methylPREDNISolone SOD SUCC 125 MG/2 ML IVPush ONE (19:30)
[2018-06-29] MEDS ORDERED: AZITHROMYCIN 500 MG in SODIUM CHLORIDE 0.9% 250 ML IV SCH (19:30)
[2018-06-29] MEDS ORDERED: POTASSIUM CHLORIDE 20 MEQ TAB.ER.PRT PO ONE (19:30)
[2018-06-29] MEDS ORDERED: BISACODYL 10 MG SUPP PR PRN (19:30)
--- NOTE | 2018-06-29 19:37 | NUR ---
PT. MEDICATED PER JUN. TO CT VIA [facility].
[2018-06-29 19:55] LABS: INTERNATIONAL NORMALIZED RATIO 1.59 (0.93-1.1); PROTHROMBIN TIME 16.4 Seconds (9.6-11.5)
[2018-06-29] MEDS ORDERED: ALBUTEROL/IPRATROPIUM 2.5MG/0.5MG, 3 ML NPPB PRN (20:00)
--- NOTE | 2018-06-29 20:01 | NUR ---
REPORT TO RATNA LYNN. FLOOR READY FOR PT. TRANSPORT.
[2018-06-29] MEDS ORDERED: WARFARIN 2 MG TABLET PO-COUM SCH (21:00)
[2018-06-29 21:06] VITALS: BP 110/64
[2018-06-29] MEDS ORDERED: IPRATROPIUM 0.5 MG/2.5 ML INHA NPPB SCH (21:30)
[2018-06-29 21:51] LABS: RAPID INFLUENZA A Negative (Negative); RAPID INFLUENZA B Negative (Negative)
[2018-06-29] MEDS: ATORVASTATIN 20 MG TABLET PO SCH (22:44)
[2018-06-29] MEDS: HEPARIN 5,000 UNITS/ML, 1ML SQ SCH (22:45)
[2018-06-29] MEDS: DOXYCYCLINE 100 MG in DEXTROSE 5% 250 ML IV SCH (22:47)
[2018-06-29] MEDS: NS + 20MEQ KCL 1,000 ML IV SCH (22:47)
[2018-06-29] MEDS: GUAIFENESIN/DM 200-20MG, 10ML UDC PO PRN (23:07)
[2018-06-29] MEDS: TEMPLATE NON-FORMULARY MED. (Brinzolamide/Brimonid Tart (Simbrinza 1%-0.2% Eye Drops) 1 DR OP SCH (23:11)
[2018-06-29] MEDS ORDERED: BENZ-17 PO (23:14)
[2018-06-29] MEDS ORDERED: AMOX-291 PO (23:14)
[2018-06-30 00:05] VITALS: BP 116/57
[2018-06-30] MEDS: HEPARIN 5,000 UNITS/ML, 1ML SQ SCH ×2 (06:12→16:51)
[2018-06-30] MEDS: methylPREDNISolone SOD SUCC 125 MG/2 ML IVPush SCH ×3 (06:13→21:23)
[2018-06-30] MEDS: GUAIFENESIN/DM 200-20MG, 10ML UDC PO PRN ×2 (06:13→22:32)
[2018-06-30 07:32] VITALS: BP 119/56
[2018-06-30 07:51] LABS: MEAN CORPUSCULAR HEMOGLOBIN 28.9 pg (27.0-34.8); MEAN CORPUSCULAR HGB CONC 33.1 g/dL (32.4-35.8); MEAN CORPUSCULAR VOLUME 87.4 fL (80-100); MEAN PLATELET VOLUME 9.8 fL (7.4-10.4); PLATELET COUNT 203 x10^3/uL (130-400); RED CELL DISTRIBUTION WIDTH 14.5 % (9.6-15.2)
[2018-06-30 07:59] LABS: ALANINE AMINOTRANSFERASE 21 U/L (12-78); ALBUMIN 3.5 g/dL (3.4-5.0); ANION GAP 9 mmol/L (5-15); CALCIUM 8.7 mg/dL (8.5-10.1); CHLORIDE 109 mmol/L (98-107)
[2018-06-30 08:02] LABS: ALKALINE PHOSPHATASE 77 U/L (45-117); BILIRUBIN,TOTAL 0.7 mg/dL (0.2-1.0); TOTAL PROTEIN 7.5 g/dL (6.4-8.2)
[2018-06-30] MEDS: TEMPLATE NON-FORMULARY MED. (Brinzolamide/Brimonid Tart (Simbrinza 1%-0.2% Eye Drops) 1 DR OP SCH ×2 (09:00→21:00)
[2018-06-30] MEDS ORDERED: FLUTICASONE/VILANTEROL 100-25MCG/INH INH SCH (09:00)
[2018-06-30] MEDS ORDERED: LATANOPROST OPHTH 0.005%, 2.5ML OP SCH (09:00)
[2018-06-30] MEDS: ALBUTEROL/IPRATROPIUM 2.5MG/0.5MG, 3 ML NPPB SCH ×2 (10:10→20:50)
[2018-06-30] MEDS ORDERED: BENZONATATE 100 MG CAPSULE ONE (10:23)
[2018-06-30] MEDS: BENZONATATE 100 MG CAPSULE PO SCH ×3 (10:34→21:23)
[2018-06-30] MEDS: AMLODIPINE 10 MG TAB PO SCH (10:34)
[2018-06-30] MEDS: GUAIFENESIN ER 600 MG TABLET PO SCH ×2 (10:34→21:23)
[2018-06-30] MEDS: NS + 20MEQ KCL 1,000 ML IV SCH ×2 (10:35→18:06)
[2018-06-30] MEDS: DOXYCYCLINE 100 MG in DEXTROSE 5% 250 ML IV SCH (10:37)
[2018-06-30] MEDS: SENNA/DOCUSATE TABLET PO SCH (10:45)
[2018-06-30 10:50] LABS: BASOPHILS # (AUTO) 0.01 x10^3/uL (0-0.1); BASOPHILS % (AUTO) 0 % (0-1); EOSINOPHILS % (AUTO) 0 % (1-7); LYMPHOCYTES % (AUTO) 5 % (22-44); MONOCYTES # (AUTO) 0.04 x10^3/uL (0.2-0.8); MONOCYTES % (AUTO) 0 % (2-9); NEUTROPHILS # (AUTO) 13.15 x10^3/uL (1.8-6.8); NEUTROPHILS % (AUTO) 95 % (42-75)
[2018-06-30] MEDS: FLUTICASONE NASAL SPRAY 16GM NAS SCH (12:22)
[2018-06-30 12:30] LABS: MD SCAN
[2018-06-30] MEDS ORDERED: WARFARIN 2 MG TABLET PO-COUM ONE ×3 (13:00→18:00)
[2018-06-30 14:18] VITALS: BP 123/61
[2018-06-30] MEDS: ACETAMINOPHEN 325 MG TABLET PO PRN (16:50)
[2018-06-30] MEDS: CEFTRIAXONE PMX 1GM/50ML 50 ML IV SCH (18:06)
[2018-06-30 18:43] LABS: INTERNATIONAL NORMALIZED RATIO 2.07 (0.93-1.1); PROTHROMBIN TIME 21.1 Seconds (9.6-11.5)
[2018-06-30 20:46] VITALS: BP 136/70
[2018-06-30] MEDS: BUDESONIDE 0.5 MG/2 ML INHA NPPB SCH (20:50)
[2018-06-30] MEDS: LATANOPROST OPHTH 0.005%, 2.5ML OP SCH (21:00)
[2018-06-30] MEDS: DOXYCYCLINE 100MG TABLET PO SCH (21:23)
[2018-06-30] MEDS: ATORVASTATIN 20 MG TABLET PO SCH (21:23)
[2018-06-30] MEDS: MONTELUKAST 10 MG TABLET PO SCH (21:23)
[2018-07-01] VITALS: BP 121/56
[2018-07-01] MEDS: NS + 20MEQ KCL 1,000 ML IV SCH (02:00)
[2018-07-01] MEDS: HEPARIN 5,000 UNITS/ML, 1ML SQ SCH ×3 (02:09→18:13)
[2018-07-01] MEDS: ALBUTEROL/IPRATROPIUM 2.5MG/0.5MG, 3 ML NPPB SCH ×4 (03:20→21:36)
[2018-07-01 04:52] LABS: CULTURE INDICATED? NO; MICROSCOPIC NOT IND
[2018-07-01 05:37] LABS: BASOPHILS # (AUTO) 0.01 x10^3/uL (0-0.1); BASOPHILS % (AUTO) 0 % (0-1); EOSINOPHILS % (AUTO) 0 % (1-7); LYMPHOCYTES # (AUTO) 0.42 x10^3/uL (1-3.4); LYMPHOCYTES % (AUTO) 3 % (22-44); MD NO; MEAN CORPUSCULAR HEMOGLOBIN 29.1 pg (27.0-34.8); MEAN CORPUSCULAR HGB CONC 33.3 g/dL (32.4-35.8); MEAN CORPUSCULAR VOLUME 87.4 fL (80-100); MONOCYTES # (AUTO) 0.39 x10^3/uL (0.2-0.8); MONOCYTES % (AUTO) 3 % (2-9); NEUTROPHILS # (AUTO) 13.98 x10^3/uL (1.8-6.8); NEUTROPHILS % (AUTO) 94 % (42-75); PLATELET COUNT 205 x10^3/uL (130-400); RED BLOOD COUNT 4.53 x10^6/uL (3.82-5.3)
[2018-07-01 05:42] LABS: ANION GAP 8 mmol/L (5-15); CALCIUM 8.3 mg/dL (8.5-10.1); CHLORIDE 117 mmol/L (98-107); CREATININE 0.84 mg/dL (0.55-1.02)
[2018-07-01 05:54] LABS: INTERNATIONAL NORMALIZED RATIO 2.07 (0.93-1.1); PROTHROMBIN TIME 21.1 Seconds (9.6-11.5)
[2018-07-01] MEDS: GUAIFENESIN/DM 200-20MG, 10ML UDC PO PRN (06:01)
[2018-07-01] MEDS: methylPREDNISolone SOD SUCC 125 MG/2 ML IVPush SCH ×2 (06:02→18:12)
[2018-07-01] MEDS: TEMPLATE NON-FORMULARY MED. (Brinzolamide/Brimonid Tart (Simbrinza 1%-0.2% Eye Drops) 1 DR OP SCH ×2 (09:00→20:06)
[2018-07-01] MEDS: BUDESONIDE 0.5 MG/2 ML INHA NPPB SCH ×2 (09:40→21:36)
[2018-07-01] MEDS: SENNA/DOCUSATE TABLET PO SCH (09:57)
[2018-07-01] MEDS: GUAIFENESIN ER 600 MG TABLET PO SCH ×2 (09:57→20:05)
[2018-07-01] MEDS: AMLODIPINE 10 MG TAB PO SCH (09:57)
[2018-07-01] MEDS: BENZONATATE 100 MG CAPSULE PO SCH ×3 (09:57→20:04)
[2018-07-01] MEDS: FLUTICASONE NASAL SPRAY 16GM NAS SCH (09:58)
[2018-07-01] MEDS: DOXYCYCLINE 100MG TABLET PO SCH ×2 (09:58→20:03)
[2018-07-01 10:12] VITALS: BP 128/75
[2018-07-01 16:53] VITALS: BP 120/56
[2018-07-01] MEDS ORDERED: WARFARIN 2 MG TABLET PO-COUM ONE (18:00)
[2018-07-01] MEDS: CEFTRIAXONE PMX 1GM/50ML 50 ML IV SCH (18:13)
[2018-07-01] MEDS: ACETAMINOPHEN 325 MG TABLET PO PRN (20:03)
[2018-07-01] MEDS: MONTELUKAST 10 MG TABLET PO SCH (20:04)
[2018-07-01] MEDS: ATORVASTATIN 20 MG TABLET PO SCH (20:05)
[2018-07-01] MEDS: LATANOPROST OPHTH 0.005%, 2.5ML OP SCH (21:24)
[2018-07-02] VITALS: BP 118/68
[2018-07-02] MEDS: HEPARIN 5,000 UNITS/ML, 1ML SQ SCH ×3 (01:40→17:30)
[2018-07-02 05:52] LABS: INTERNATIONAL NORMALIZED RATIO 2.5 (0.93-1.1); PROTHROMBIN TIME 25.3 Seconds (9.6-11.5)
[2018-07-02] MEDS: methylPREDNISolone SOD SUCC 125 MG/2 ML IVPush SCH ×2 (06:04→17:30)
[2018-07-02 07:42] VITALS: BP 107/61
[2018-07-02] MEDS: AMLODIPINE 10 MG TAB PO SCH (09:03)
[2018-07-02] MEDS: SENNA/DOCUSATE TABLET PO SCH (09:03)
[2018-07-02] MEDS: DOXYCYCLINE 100MG TABLET PO SCH ×2 (09:03→20:40)
[2018-07-02] MEDS: GUAIFENESIN ER 600 MG TABLET PO SCH ×2 (09:03→20:40)
[2018-07-02] MEDS: BENZONATATE 100 MG CAPSULE PO SCH ×3 (09:03→20:40)
[2018-07-02] MEDS: FLUTICASONE NASAL SPRAY 16GM NAS SCH (09:05)
[2018-07-02] MEDS: TEMPLATE NON-FORMULARY MED. (Brinzolamide/Brimonid Tart (Simbrinza 1%-0.2% Eye Drops) 1 DR OP SCH ×2 (09:05→20:39)
[2018-07-02] MEDS: BUDESONIDE 0.5 MG/2 ML INHA NPPB SCH ×2 (11:25→19:41)
[2018-07-02] MEDS: ALBUTEROL/IPRATROPIUM 2.5MG/0.5MG, 3 ML NPPB SCH ×3 (11:25→19:41)
[2018-07-02 12:00] VITALS: BP 135/79
[2018-07-02] MEDS: CEFTRIAXONE PMX 1GM/50ML 50 ML IV SCH (17:30)
[2018-07-02] MEDS ORDERED: WARFARIN 2 MG TABLET PO-COUM ONE (18:00)
[2018-07-02 19:15] VITALS: BP 120/66
[2018-07-02] MEDS: LATANOPROST OPHTH 0.005%, 2.5ML OP SCH (20:39)
[2018-07-02] MEDS: ATORVASTATIN 20 MG TABLET PO SCH (20:41)
[2018-07-02] MEDS: MONTELUKAST 10 MG TABLET PO SCH (20:41)
[2018-07-02] MEDS: ACETAMINOPHEN 325 MG TABLET PO PRN (20:51)
[2018-07-03 00:35] VITALS: BP 140/80
[2018-07-03] MEDS: HEPARIN 5,000 UNITS/ML, 1ML SQ SCH ×2 (01:31→09:00)
[2018-07-03] MEDS: ALBUTEROL/IPRATROPIUM 2.5MG/0.5MG, 3 ML NPPB SCH ×2 (02:23→07:10)
[2018-07-03] MEDS: ACETAMINOPHEN 325 MG TABLET PO PRN (05:45)
[2018-07-03 06:34] LABS: INTERNATIONAL NORMALIZED RATIO 2.49 (0.93-1.1); PROTHROMBIN TIME 25.2 Seconds (9.6-11.5)
[2018-07-03] MEDS: BUDESONIDE 0.5 MG/2 ML INHA NPPB SCH (07:10)
[2018-07-03 07:34] VITALS: BP 145/85
[2018-07-03] MEDS: SENNA/DOCUSATE TABLET PO SCH (08:08)
[2018-07-03] MEDS: GUAIFENESIN ER 600 MG TABLET PO SCH (08:08)
[2018-07-03] MEDS: BENZONATATE 100 MG CAPSULE PO SCH (08:10)
[2018-07-03] MEDS: FLUTICASONE NASAL SPRAY 16GM NAS SCH (08:10)
[2018-07-03] MEDS: DOXYCYCLINE 100MG TABLET PO SCH (08:10)
[2018-07-03] MEDS: AMLODIPINE 10 MG TAB PO SCH (08:10)
[2018-07-03] MEDS: TEMPLATE NON-FORMULARY MED. (Brinzolamide/Brimonid Tart (Simbrinza 1%-0.2% Eye Drops) 1 DR OP SCH (08:11)
[2018-07-03] MEDS ORDERED: BENZ-17 PO (10:37)
[2018-07-03] MEDS ORDERED: DOXY100T PO (10:37)
[2018-07-03] MEDS ORDERED: PRED20TA PO (10:37)
[2018-07-03] MEDS ORDERED: MONT10TA9 PO (10:37)
[2018-07-03] MEDS ORDERED: GUAI600T31 PO (10:37)
[2018-07-03] MEDS ORDERED: IPRA3AMP30 NPPB (10:56)
[2018-07-03] MEDS ORDERED: WARFARIN 2 MG TABLET PO-COUM ONE (18:00)
== END 2018-07-03 12:50 | disposition home or self-care (01) | DRG 871 ==
LOC: ED 19:51 → EDIP 19:55 → 4WST 20:38 → DCLOUNGE 07-03 12:34
PROVIDERS: ADMIT Family Medicine; ATTEND Family Medicine
DX: A41.9 Sepsis, unspecified organism (principal); J18.9 Pneumonia, unspecified organism; J96.10 Chronic respiratory failure, unspecified whether with hypoxia or hypercapnia; J44.1 Chronic obstructive pulmonary disease with (acute) exacerbation; J44.0 Chronic obstructive pulmonary disease with (acute) lower respiratory infection; D86.9 Sarcoidosis, unspecified; E78.5 Hyperlipidemia, unspecified; E87.6 Hypokalemia; I11.0 Hypertensive heart disease with heart failure; I48.91 Unspecified atrial fibrillation; I50.9 Heart failure, unspecified; Z82.49 Family history of ischemic heart disease and other diseases of the circulatory system; Z79.01 Long term (current) use of anticoagulants; Z86.711 Personal history of pulmonary embolism; Z86.718 Personal history of other venous thrombosis and embolism; Z87.01 Personal history of pneumonia (recurrent); Z87.891 Personal history of nicotine dependence; Z95.828 Presence of other vascular implants and grafts; M54.9 Dorsalgia, unspecified; G89.29 Other chronic pain
CPT/HCPCS: 36415; 71045; 71250; 80048; 80053; 81003; 82040; 83605; 83735; 83880; 84145; 84484; 85025; 85610; 87040; 87070; 87205; 87400; 93005; 93306; 94640; 96365; G0378; J0456; J0696; J1644; J3480; J7060; J7620; J7626; J2930; J7050; J7512

== ENCOUNTER 2018-11-08 10:09 | Outpatient (CLI) | payer MEDICARE, MEDICAID | END 2018-11-08 23:59 | disposition home or self-care (01) | LOC: CFH 10:09 | PROVIDERS: ATTEND Nurse Practitioner Family | DX: I31.3 Pericardial effusion (noninflammatory) (principal); I51.7 Cardiomegaly; E04.1 Nontoxic single thyroid nodule; R59.0 Localized enlarged lymph nodes; M51.34 Other intervertebral disc degeneration, thoracic region | CPT/HCPCS: 71250 ==

== ENCOUNTER 2019-03-15 21:03 | Emergency (ER) | payer MEDICARE, MEDICAID ==
[~2019-03-15 21:03] MED LIST changes: +ALBU18HF INH; +AMOX-291 PO; -DOXY100T10 PO; +DOXY100T23 PO; +IPRA3AMP30 NPPB; +MONT10TA9 PO; +PRED20TA PO
[2019-03-15] MEDS ORDERED: HYDROcodone/APAP 5/325 TABLET PO STA (22:38)
[2019-03-15] MEDS ORDERED: KETOROLAC 30 MG/1 ML IM ONE (23:00)
[2019-03-15 23:56] LABS: BASOPHILS # (AUTO) 0.01 x10^3/uL (0-0.1); BASOPHILS % (AUTO) 0 % (0-1); EOSINOPHILS % (AUTO) 2 % (1-7); LYMPHOCYTES # (AUTO) 1.45 x10^3/uL (1-3.4); LYMPHOCYTES % (AUTO) 16 % (22-44); MD NO; MEAN CORPUSCULAR HEMOGLOBIN 30.1 pg (27.0-34.8); MEAN CORPUSCULAR HGB CONC 32.5 g/dL (32.4-35.8); MEAN CORPUSCULAR VOLUME 92.5 fL (80-100); MEAN PLATELET VOLUME 9.1 fL (7.4-10.4); MONOCYTES # (AUTO) 0.58 x10^3/uL (0.2-0.8); MONOCYTES % (AUTO) 6 % (2-9); NEUTROPHILS # (AUTO) 6.91 x10^3/uL (1.8-6.8); NEUTROPHILS % (AUTO) 76 % (42-75); PLATELET COUNT 243 x10^3/uL (130-400); RED BLOOD COUNT 5.26 x10^6/uL (3.82-5.3)
[2019-03-16 00:05] VITALS: BP 139/68
[2019-03-16 00:05] LABS: ALBUMIN 3.8 g/dL (3.4-5.0); ANION GAP 4 mmol/L (5-15); CALCIUM 9.1 mg/dL (8.5-10.1); CHLORIDE 109 mmol/L (98-107); CREATININE 0.89 mg/dL (0.55-1.02)
[2019-03-16] MEDS ORDERED: HYDROcodone/APAP 5/325 TABLET ONE (00:07)
[2019-03-16] MEDS ORDERED: KETOROLAC 30 MG/1 ML ONE (00:07)
[2019-03-16] MEDS ORDERED: HYDROcodone/APAP 5/325 TABLET PO STA (00:15)
[2019-03-16] MEDS ORDERED: KETOROLAC 30 MG/1 ML IM ONE (00:30)
--- NOTE | 2019-03-16 01:06 | NUR ---
ALL RESULTS BACK AT THIS TIME. CHART UP FOR RECHECK
== END 2019-03-16 01:40 | disposition home or self-care (01) ==
LOC: ED 03-16 01:15
DX: M13.172 Monoarthritis, not elsewhere classified, left ankle and foot (principal); M79.672 Pain in left foot; I11.0 Hypertensive heart disease with heart failure; I50.9 Heart failure, unspecified; E87.6 Hypokalemia; J43.9 Emphysema, unspecified; I26.99 Other pulmonary embolism without acute cor pulmonale
CPT/HCPCS: 36415; 73630; 80048; 82040; 85025; 96372; 99284; J1885

== ENCOUNTER → 2019-06-27 | Outpatient (CLI) | payer MEDICARE, MEDICAID ==
[~2019-06-27] MED LIST changes: +MONT10TA11 PO; -MONT10TA9 PO
[2019-06-27 13:15] LABS: INTERNATIONAL NORMALIZED RATIO 1.65 (0.93-1.1); PROTHROMBIN TIME 17.6 Seconds (9.6-11.5)
== END | disposition home or self-care (01) ==
LOC: CFH 10:33
PROVIDERS: ATTEND Internal Medicine Cardiovascular Disease
DX: I82.409 Acute embolism and thrombosis of unspecified deep veins of unspecified lower extremity (principal); Z79.01 Long term (current) use of anticoagulants
CPT/HCPCS: 36415; 85610

== ENCOUNTER 2019-07-11 10:15 | Outpatient (CLI) | payer MEDICARE, MEDICAID ==
[2019-07-11 12:53] LABS: INTERNATIONAL NORMALIZED RATIO 1.43 (0.93-1.1); PROTHROMBIN TIME 15.2 Seconds (9.6-11.5)
== END 2019-07-11 23:59 | disposition home or self-care (01) ==
LOC: CFH 10:15
PROVIDERS: ATTEND Internal Medicine Cardiovascular Disease
DX: I82.409 Acute embolism and thrombosis of unspecified deep veins of unspecified lower extremity (principal); Z79.01 Long term (current) use of anticoagulants
CPT/HCPCS: 36415; 85610

== ENCOUNTER 2019-07-13 13:14 | Emergency (ER) | payer MEDICARE, MEDICAID ==
[~2019-07-13] VITALS: Ht 160 cm; Wt 73.4 kg
--- NOTE | 2019-07-13 13:36 | NUR ---
sent here from urgent care for pulmonary edema. original complaint of increased shortness of breath over the last few dayS WITH INCREASED BILAT LEG EDEMA. PT DENIES CP, N/V. PPE IN PLACE
[2019-07-13 13:37] VITALS: BP 140/69
[2019-07-13 13:56] LABS: BASOPHILS # (AUTO) 0.01 x10^3/uL (0-0.1); BASOPHILS % (AUTO) 0 % (0-1); EOSINOPHILS % (AUTO) 1 % (1-7); LYMPHOCYTES # (AUTO) 0.79 x10^3/uL (1-3.4); LYMPHOCYTES % (AUTO) 10 % (22-44); MD NO; MEAN CORPUSCULAR HEMOGLOBIN 29.3 pg (27.0-34.8); MEAN CORPUSCULAR HGB CONC 32.4 g/dL (32.4-35.8); MEAN CORPUSCULAR VOLUME 90.5 fL (80-100); MEAN PLATELET VOLUME 8.8 fL (7.4-10.4); MONOCYTES # (AUTO) 0.42 x10^3/uL (0.2-0.8); MONOCYTES % (AUTO) 6 % (2-9); NEUTROPHILS # (AUTO) 6.32 x10^3/uL (1.8-6.8); NEUTROPHILS % (AUTO) 83 % (42-75); PLATELET COUNT 199 x10^3/uL (130-400); RED BLOOD COUNT 5.13 x10^6/uL (3.82-5.3); RED CELL DISTRIBUTION WIDTH 14.5 % (9.6-15.2)
[2019-07-13 14:06] LABS: INTERNATIONAL NORMALIZED RATIO 1.53 (0.93-1.1); PROTHROMBIN TIME 16.3 Seconds (9.6-11.5)
[2019-07-13 14:07] LABS: ALBUMIN 4.1 g/dL (3.4-5.0); ANION GAP 7 mmol/L (5-15); CALCIUM 9.5 mg/dL (8.5-10.1); CHLORIDE 108 mmol/L (98-107); CREATININE 0.83 mg/dL (0.55-1.02)
[2019-07-13 14:11] LABS: TROPONIN I < 0.015 ng/mL (0.000-0.045)
--- NOTE | 2019-07-13 14:46 | NUR ---
Break Rn: Patient given discharge instructions and they have confirmed that they understand the instructions. Patient ambulatory with steady gait.
== END 2019-07-13 14:55 | disposition home or self-care (01) ==
LOC: ED 13:25
DX: J44.1 Chronic obstructive pulmonary disease with (acute) exacerbation (principal); I11.0 Hypertensive heart disease with heart failure; I50.9 Heart failure, unspecified; J43.9 Emphysema, unspecified; R07.9 Chest pain, unspecified
CPT/HCPCS: 36415; 71045; 80048; 82040; 83880; 84484; 85025; 85610; 85730; 99285

== ENCOUNTER → 2019-07-20 | Outpatient (CLI) | payer MEDICARE, MEDICAID ==
[2019-07-20 13:24] LABS: MEAN CORPUSCULAR HEMOGLOBIN 29.2 pg (27.0-34.8); MEAN CORPUSCULAR HGB CONC 32.3 g/dL (32.4-35.8); MEAN CORPUSCULAR VOLUME 90.2 fL (80-100); MEAN PLATELET VOLUME 9.4 fL (7.4-10.4); PLATELET COUNT 235 x10^3/uL (130-400); RED BLOOD COUNT 5.31 x10^6/uL (3.82-5.3); RED CELL DISTRIBUTION WIDTH 14.6 % (9.6-15.2)
[2019-07-20 13:51] LABS: MD YES
[2019-07-20 13:53] LABS: EOS#(MANUAL) 0.43 x10^3/uL (0.0-0.4); EOS% (MANUAL) 3 % (1-7); LYMPH#(MANUAL) 2.72 x10^3/uL (1-3.4); LYMPHS% (MANUAL) 19 % (22-44)
[2019-07-20 13:54] LABS: MONOS#(MANUAL) 1.43 x10^3/uL (0.3-2.7); MONOS% (MANUAL) 10 % (2-9)
[2019-07-20 13:55] LABS: SEG#(MANUAL) 9.72 x10^3/uL (1.8-6.8); SEGS% (MANUAL) 68 % (42-75)
[2019-07-20 13:56] LABS: <PLATELET ESTIMATE> ADEQUATE; <PLT MORPHOLOGY> NORMAL PLT MORPH; <RBC MORPHOLOGY> NORMAL
[2019-07-20 14:26] LABS: CHLORIDE 107 mmol/L (98-107)
[2019-07-20 14:44] LABS: ALANINE AMINOTRANSFERASE 132 U/L (12-78); ALBUMIN 3.5 g/dL (3.4-5.0); ALKALINE PHOSPHATASE 81 U/L (45-117); ANION GAP 6 mmol/L (5-15); BILIRUBIN,TOTAL 0.5 mg/dL (0.2-1.0); CALCIUM 8.6 mg/dL (8.5-10.1); CHOL/HDL RATIO 2.1; CHOLESTEROL, TOTAL 132 mg/dL (140-239); CREATININE 0.98 mg/dL (0.55-1.02); HDL CHOL % 47 % (28-40); HDL CHOLESTEROL (DIRECT) 62 mg/dL (40-60); LDL CHOLESTEROL,CALCULATED 31 mg/dL (54-169); LDL/HDL RATIO 0.5 (0.5-3.0); TOTAL PROTEIN 7.1 g/dL (6.4-8.2); TRIGLYCERIDES 193 mg/dL (50-200); VLDL CHOLESTEROL 39 mg/dL (0-25)
== END | disposition home or self-care (01) ==
LOC: CFH 10:26
PROVIDERS: ATTEND Nurse Practitioner Family
DX: I10 Essential (primary) hypertension (principal); E78.49 Other hyperlipidemia; M10.9 Gout, unspecified
CPT/HCPCS: 36415; 80053; 80061; 84550; 85025

== ENCOUNTER 2019-07-22 12:21 | Emergency (ER) | payer MEDICARE, MEDICAID ==
[~2019-07-22] VITALS: Ht 160 cm; Wt 73.5 kg
--- NOTE | 2019-07-22 12:44 | NUR ---
PT CAME IN CO "SOB, COUGH AND WHEEZING FOR THE LAST COUPLE OF DAYS". PT SAYS SHE HAS A HX OF COPD AND USES HER INHALERS BUT THEY HAVENT BEEN HELPING. ALSO SAYS SHE HAS BEEN STAYING HOME AND ISOLATING. PT ALSO IS SOB WHEN TALKING. PT IS 95% ON ROOM AIR. 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
[2019-07-22 13:29] LABS: ALANINE AMINOTRANSFERASE 95 U/L (12-78); ALBUMIN 3.7 g/dL (3.4-5.0); ANION GAP 4 mmol/L (5-15); CALCIUM 9.4 mg/dL (8.5-10.1); CHLORIDE 106 mmol/L (98-107); CREATININE 0.83 mg/dL (0.55-1.02)
[2019-07-22 13:34] LABS: ALKALINE PHOSPHATASE 78 U/L (45-117); BILIRUBIN,TOTAL 0.4 mg/dL (0.2-1.0); TOTAL PROTEIN 7.3 g/dL (6.4-8.2); TROPONIN I < 0.015 ng/mL (0.000-0.045)
[2019-07-22 13:36] VITALS: BP 127/59
[2019-07-22 13:41] LABS: MEAN CORPUSCULAR HEMOGLOBIN 28.9 pg (27.0-34.8); MEAN CORPUSCULAR HGB CONC 32.4 g/dL (32.4-35.8); MEAN CORPUSCULAR VOLUME 88.9 fL (80-100); MEAN PLATELET VOLUME 8.6 fL (7.4-10.4); PLATELET COUNT 257 x10^3/uL (130-400); RED BLOOD COUNT 5.15 x10^6/uL (3.82-5.3); RED CELL DISTRIBUTION WIDTH 14.5 % (9.6-15.2)
[2019-07-22 13:55] LABS: BASOPHILS % (AUTO) 0 % (0-1); EOSINOPHILS # (AUTO) 0.22 x10^3/uL (0-0.4); EOSINOPHILS % (AUTO) 2 % (1-7); LYMPHOCYTES # (AUTO) 1.32 x10^3/uL (1-3.4); LYMPHOCYTES % (AUTO) 12 % (22-44); MD SCAN; MONOCYTES # (AUTO) 0.73 x10^3/uL (0.2-0.8); MONOCYTES % (AUTO) 6 % (2-9); NEUTROPHILS # (AUTO) 9.05 x10^3/uL (1.8-6.8); NEUTROPHILS % (AUTO) 80 % (42-75)
[2019-07-22 14:51] LABS: INTERNATIONAL NORMALIZED RATIO 3.65 (0.93-1.1); PROTHROMBIN TIME 39.2 Seconds (9.6-11.5)
== END 2019-07-22 16:02 | disposition home or self-care (01) ==
LOC: ED 12:41
DX: J44.1 Chronic obstructive pulmonary disease with (acute) exacerbation (principal); D68.9 Coagulation defect, unspecified; I11.0 Hypertensive heart disease with heart failure; I50.9 Heart failure, unspecified; G89.29 Other chronic pain; R94.31 Abnormal electrocardiogram [ECG] [EKG]; Z86.718 Personal history of other venous thrombosis and embolism; Z86.711 Personal history of pulmonary embolism; Z87.891 Personal history of nicotine dependence; M19.90 Unspecified osteoarthritis, unspecified site
CPT/HCPCS: 36415; 71045; 80053; 83880; 84484; 85025; 85610; 93005; 99285; J7512

== ENCOUNTER 2019-07-30 08:52 | Outpatient (CLI) | payer MEDICARE, MEDICAID ==
[2019-07-30 13:00] LABS: INTERNATIONAL NORMALIZED RATIO 1.82 (0.93-1.1); PROTHROMBIN TIME 19.4 Seconds (9.6-11.5)
== END 2019-07-30 23:59 | disposition home or self-care (01) ==
LOC: CFH 08:52
PROVIDERS: ATTEND Internal Medicine Cardiovascular Disease
DX: I82.409 Acute embolism and thrombosis of unspecified deep veins of unspecified lower extremity (principal); Z79.01 Long term (current) use of anticoagulants
CPT/HCPCS: 36415; 85610

== ENCOUNTER → 2019-08-22 | Outpatient (CLI) | payer MEDICARE, MEDICAID ==
[2019-08-22 15:52] LABS: INTERNATIONAL NORMALIZED RATIO 1.15 (0.93-1.1); PROTHROMBIN TIME 12.2 Seconds (9.6-11.5)
== END | disposition home or self-care (01) ==
LOC: CFH 12:44
PROVIDERS: ATTEND Internal Medicine Cardiovascular Disease
DX: I82.409 Acute embolism and thrombosis of unspecified deep veins of unspecified lower extremity (principal); Z79.01 Long term (current) use of anticoagulants
CPT/HCPCS: 36415; 85610

== ENCOUNTER 2019-09-04 10:02 | Outpatient (CLI) | payer MEDICARE, MEDICAID | END 2019-09-04 23:59 | disposition home or self-care (01) | LOC: CFH 10:02 | PROVIDERS: ATTEND Nurse Practitioner Family | DX: K42.9 Umbilical hernia without obstruction or gangrene (principal) | CPT/HCPCS: 76705 ==

== ENCOUNTER 2019-09-10 08:51 | Outpatient (CLI) | payer MEDICARE, MEDICAID ==
[2019-09-10 12:57] LABS: INTERNATIONAL NORMALIZED RATIO 1.58 (0.93-1.1); PROTHROMBIN TIME 16.8 Seconds (9.6-11.5)
== END 2019-09-10 23:59 | disposition home or self-care (01) ==
LOC: CFH 08:51
PROVIDERS: ATTEND Internal Medicine Cardiovascular Disease
DX: I82.409 Acute embolism and thrombosis of unspecified deep veins of unspecified lower extremity (principal); Z79.01 Long term (current) use of anticoagulants
CPT/HCPCS: 36415; 85610

== ENCOUNTER 2019-09-14 19:17 | Emergency (ER) | payer MEDICARE, MEDICAID ==
[~2019-09-14] VITALS: Ht 160 cm; Wt 72.0 kg
--- NOTE | 2019-09-14 20:09 | NUR ---
LAB AT BEDSIDE PLACED ON [employer]ED [employer], POX 89%, PLACED ON 2L NC. USES 2L NC AT NIGHT (COPD) UPDATED ON ESTIMATED POC
[2019-09-14 20:17] LABS: BASOPHILS # (AUTO) 0.01 x10^3/uL (0-0.1); BASOPHILS % (AUTO) 0 % (0-1); EOSINOPHILS # (AUTO) 0.11 x10^3/uL (0-0.4); EOSINOPHILS % (AUTO) 1 % (1-7); LYMPHOCYTES # (AUTO) 1.27 x10^3/uL (1-3.4); LYMPHOCYTES % (AUTO) 15 % (22-44); MD NO; MEAN CORPUSCULAR HEMOGLOBIN 29.4 pg (27.0-34.8); MEAN CORPUSCULAR HGB CONC 32.7 g/dL (32.4-35.8); MEAN CORPUSCULAR VOLUME 89.8 fL (80-100); MEAN PLATELET VOLUME 8.5 fL (7.4-10.4); MONOCYTES # (AUTO) 0.46 x10^3/uL (0.2-0.8); MONOCYTES % (AUTO) 5 % (2-9); NEUTROPHILS # (AUTO) 6.64 x10^3/uL (1.8-6.8); NEUTROPHILS % (AUTO) 78 % (42-75); PLATELET COUNT 238 x10^3/uL (130-400); RED BLOOD COUNT 5.03 x10^6/uL (3.82-5.3)
[2019-09-14 20:25] LABS: INTERNATIONAL NORMALIZED RATIO 1.96 (0.93-1.1); PROTHROMBIN TIME 20.9 Seconds (9.6-11.5)
[2019-09-14 20:27] LABS: ALANINE AMINOTRANSFERASE 30 U/L (12-78); ALBUMIN 4.1 g/dL (3.4-5.0); ANION GAP 7 mmol/L (5-15); CALCIUM 9.6 mg/dL (8.5-10.1); CHLORIDE 111 mmol/L (98-107); CREATININE 0.94 mg/dL (0.55-1.02)
[2019-09-14 20:31] LABS: ALKALINE PHOSPHATASE 75 U/L (45-117); BILIRUBIN,TOTAL 0.4 mg/dL (0.2-1.0); TOTAL PROTEIN 8.2 g/dL (6.4-8.2); TROPONIN I < 0.015 ng/mL (0.000-0.045)
[2019-09-14 21:04] VITALS: BP 154/61
--- NOTE | 2019-09-14 21:05 | NUR ---
WITH REASSESSMENT-DENIES PAIN/NAUSEA VSS ON SHINGLE CATCHER POC REVIEWED WITH PROVIDER-PROBABLE D/C PATIENT UPDATED THAT MD TO [facility] SHORTLY
[2019-09-14 22:37] LABS: TROPONIN I < 0.015 ng/mL (0.000-0.045)
[2019-09-14] MEDS ORDERED: ACETAMINOPHEN 500 MG TABLET ONE (22:39)
[2019-09-14] MEDS ORDERED: ACETAMINOPHEN 500 MG TABLET PO ONE (23:00)
[2019-09-14] MEDS ORDERED: ACETAMINOPHEN 325 MG TABLET PO ONE (23:00)
== END 2019-09-14 22:45 | disposition home or self-care (01) ==
LOC: ED 21:44
DX: K43.9 Ventral hernia without obstruction or gangrene (principal); R07.89 Other chest pain; R60.0 Localized edema; R94.31 Abnormal electrocardiogram [ECG] [EKG]; I10 Essential (primary) hypertension; Z87.891 Personal history of nicotine dependence; Z86.718 Personal history of other venous thrombosis and embolism
CPT/HCPCS: 36415; 71045; 80053; 83880; 84484; 85025; 85379; 85610; 93005; 99285

== ENCOUNTER → 2019-09-24 | Outpatient (CLI) | payer MEDICARE, MEDICAID ==
[2019-09-24 13:21] LABS: INTERNATIONAL NORMALIZED RATIO 1.34 (0.93-1.1); PROTHROMBIN TIME 14.2 Seconds (9.6-11.5)
== END | disposition home or self-care (01) ==
LOC: CFH 09:40
PROVIDERS: ATTEND Internal Medicine Cardiovascular Disease
DX: I82.409 Acute embolism and thrombosis of unspecified deep veins of unspecified lower extremity (principal); Z79.01 Long term (current) use of anticoagulants
CPT/HCPCS: 36415; 85610

== ENCOUNTER → 2019-10-08 | Outpatient (CLI) | payer MEDICARE, MEDICAID ==
[2019-10-08 13:03] LABS: INTERNATIONAL NORMALIZED RATIO 3.2 (0.93-1.1); PROTHROMBIN TIME 34.3 Seconds (9.6-11.5)
== END | disposition home or self-care (01) ==
LOC: CFH 10:15
PROVIDERS: ATTEND Internal Medicine Cardiovascular Disease
DX: I82.409 Acute embolism and thrombosis of unspecified deep veins of unspecified lower extremity (principal); Z79.01 Long term (current) use of anticoagulants
CPT/HCPCS: 36415; 85610

== ENCOUNTER → 2019-10-12 | Outpatient (CLI) | payer MEDICARE, MEDICAID ==
[2019-10-12 12:59] LABS: BASOPHILS # (AUTO) 0.03 x10^3/uL (0-0.1); BASOPHILS % (AUTO) 0 % (0-1); EOSINOPHILS % (AUTO) 1 % (1-7); LYMPHOCYTES # (AUTO) 1.47 x10^3/uL (1-3.4); LYMPHOCYTES % (AUTO) 19 % (22-44); MD NO; MEAN CORPUSCULAR HEMOGLOBIN 29.3 pg (27.0-34.8); MEAN CORPUSCULAR HGB CONC 32.1 g/dL (32.4-35.8); MEAN CORPUSCULAR VOLUME 91.1 fL (80-100); MEAN PLATELET VOLUME 9.4 fL (7.4-10.4); MONOCYTES # (AUTO) 0.27 x10^3/uL (0.2-0.8); MONOCYTES % (AUTO) 4 % (2-9); NEUTROPHILS # (AUTO) 5.73 x10^3/uL (1.8-6.8); NEUTROPHILS % (AUTO) 75 % (42-75); PLATELET COUNT 199 x10^3/uL (130-400); RED CELL DISTRIBUTION WIDTH 14.3 % (9.6-15.2)
[2019-10-12 13:14] LABS: CHLORIDE 108 mmol/L (98-107)
[2019-10-12 13:23] LABS: ALANINE AMINOTRANSFERASE 35 U/L (12-78); ALKALINE PHOSPHATASE 80 U/L (45-117); ANION GAP 4 mmol/L (5-15); BILIRUBIN,TOTAL 0.6 mg/dL (0.2-1.0); CALCIUM 9.5 mg/dL (8.5-10.1); CREATININE 0.88 mg/dL (0.55-1.02); TOTAL PROTEIN 7.4 g/dL (6.4-8.2)
== END | disposition home or self-care (01) ==
LOC: CFH 09:47
PROVIDERS: ATTEND Nurse Practitioner Family
DX: R74.8 Abnormal levels of other serum enzymes (principal); D72.829 Elevated white blood cell count, unspecified
CPT/HCPCS: 36415; 80053; 85025

== ENCOUNTER → 2019-10-22 | Outpatient (CLI) | payer MEDICARE, MEDICAID ==
[2019-10-22 12:57] LABS: INTERNATIONAL NORMALIZED RATIO 2.27 (0.93-1.1); PROTHROMBIN TIME 24.3 Seconds (9.6-11.5)
== END | disposition home or self-care (01) ==
LOC: CFH 08:45
PROVIDERS: ATTEND Internal Medicine Cardiovascular Disease
DX: I82.409 Acute embolism and thrombosis of unspecified deep veins of unspecified lower extremity (principal); Z79.01 Long term (current) use of anticoagulants
CPT/HCPCS: 36415; 85610

== ENCOUNTER → 2019-11-12 | Outpatient (CLI) | payer MEDICARE, MEDICAID ==
[2019-11-12 12:44] LABS: INTERNATIONAL NORMALIZED RATIO 1.88 (0.93-1.1); PROTHROMBIN TIME 19.5 Seconds (9.6-11.5)
== END | disposition home or self-care (01) ==
LOC: CFH 09:13
PROVIDERS: ATTEND Internal Medicine Cardiovascular Disease
DX: I82.409 Acute embolism and thrombosis of unspecified deep veins of unspecified lower extremity (principal); Z79.01 Long term (current) use of anticoagulants
CPT/HCPCS: 36415; 85610

== ENCOUNTER → 2019-12-03 | Outpatient (CLI) | payer MEDICARE, MEDICAID ==
[2019-12-03 12:32] LABS: INTERNATIONAL NORMALIZED RATIO 2.11 (0.93-1.1); PROTHROMBIN TIME 21.9 Seconds (9.6-11.5)
== END | disposition home or self-care (01) ==
LOC: CFH 09:50
PROVIDERS: ATTEND Internal Medicine Cardiovascular Disease
DX: I82.409 Acute embolism and thrombosis of unspecified deep veins of unspecified lower extremity (principal); Z79.01 Long term (current) use of anticoagulants
CPT/HCPCS: 36415; 85610

== ENCOUNTER 2019-12-31 09:23 | Outpatient (CLI) | payer MEDICARE, MEDICAID ==
[2019-12-31 10:43] LABS: INTERNATIONAL NORMALIZED RATIO 1.88 (0.93-1.1); PROTHROMBIN TIME 19.5 Seconds (9.6-11.5)
== END 2019-12-31 23:59 | disposition home or self-care (01) ==
LOC: CFH 09:23
PROVIDERS: ATTEND Internal Medicine Cardiovascular Disease
DX: I82.409 Acute embolism and thrombosis of unspecified deep veins of unspecified lower extremity (principal); Z79.01 Long term (current) use of anticoagulants
CPT/HCPCS: 36415; 85610

== ENCOUNTER → 2020-03-24 | Outpatient (CLI) | payer MEDICARE, MEDICAID ==
[~2020-03-24] MED LIST changes: +AMLO-211 PO; -AMLO10TA8 PO; -MONT10TA11 PO; +MONT10TA96 PO
[2020-03-24 09:49] LABS: INTERNATIONAL NORMALIZED RATIO 1.96 (0.93-1.1); PROTHROMBIN TIME 20.6 Seconds (9.6-11.5)
== END | disposition home or self-care (01) ==
LOC: LAB 09:23
PROVIDERS: ATTEND Internal Medicine Cardiovascular Disease
DX: I82.409 Acute embolism and thrombosis of unspecified deep veins of unspecified lower extremity (principal); Z79.01 Long term (current) use of anticoagulants
CPT/HCPCS: 36415; 85610

== ENCOUNTER 2020-04-25 09:34 | Outpatient (CLI) | payer MEDICARE, MEDICAID ==
[~2020-04-25 09:34] MED LIST changes: -OXYC-307 PO; +OXYC-380 PO
== END 2020-04-25 23:59 | disposition home or self-care (01) ==
LOC: CFH 09:34
PROVIDERS: ATTEND Nurse Practitioner Family
DX: Z12.2 Encounter for screening for malignant neoplasm of respiratory organs (principal); Z87.891 Personal history of nicotine dependence; R59.0 Localized enlarged lymph nodes; E04.1 Nontoxic single thyroid nodule; I51.7 Cardiomegaly
CPT/HCPCS: 71271

== ENCOUNTER → 2020-05-07 | Outpatient (CLI) | payer MEDICARE, MEDICAID ==
[~2020-05-07] MED LIST changes: +MONT10TA17 PO; -MONT10TA96 PO
== END | disposition home or self-care (01) ==
LOC: CFH 08:43
PROVIDERS: ATTEND Internal Medicine Cardiovascular Disease
DX: I08.1 Rheumatic disorders of both mitral and tricuspid valves (principal); J44.9 Chronic obstructive pulmonary disease, unspecified; I27.20 Pulmonary hypertension, unspecified
CPT/HCPCS: 93306

== ENCOUNTER 2020-11-27 09:57 | Emergency (ER) | payer MEDICARE, MEDICAID ==
[~2020-11-27] VITALS: Ht 160 cm; Wt 70.7 kg
[~2020-11-27 09:57] MED LIST changes: +DOXY-246 PO; -DOXY100C15 PO
[2020-11-27] MEDS ORDERED: SODIUM CHLORIDE FLUSH 10ML SYR IVF ONE (11:00)
[2020-11-27 11:35] LABS: BASOPHILS % (AUTO) 0 % (0-1); EOSINOPHILS % (AUTO) 1 % (1-7); LYMPHOCYTES % (AUTO) 14 % (22-44); MEAN CORPUSCULAR HEMOGLOBIN 30.1 pg (27.0-34.8); MEAN PLATELET VOLUME 9.6 fL (7.4-10.4); MONOCYTES % (AUTO) 7 % (2-9); NEUTROPHILS % (AUTO) 78 % (42-75); PLATELET COUNT 209 x10^3/uL (130-400); RED CELL DISTRIBUTION WIDTH 14.4 % (9.6-15.2)
[2020-11-27 11:38] LABS: INTERNATIONAL NORMALIZED RATIO 1.67 (0.93-1.1); PROTHROMBIN TIME 17.4 Seconds (9.6-11.5)
[2020-11-27 11:53] LABS: CHLORIDE 110 mmol/L (98-107)
--- NOTE | 2020-11-27 11:57 | NUR ---
PT RESTING ON ED GURNEY WITH CELL PHONE IN HAND. NAD. VSS. RAILS UP AND CALL LIGHT WITHIN REACH.
[2020-11-27 12:24] LABS: ALANINE AMINOTRANSFERASE 39 U/L (12-78); ALBUMIN 3.8 g/dL (3.4-5.0); ALKALINE PHOSPHATASE 89 U/L (45-117); ANION GAP 7 mmol/L (5-15); BILIRUBIN,TOTAL 0.4 mg/dL (0.2-1.0); CALCIUM 9.1 mg/dL (8.5-10.1); CREATININE 0.74 mg/dL (0.55-1.02); TOTAL PROTEIN 8.1 g/dL (6.4-8.2); TROPONIN I < 0.015 ng/mL (0.000-0.045)
--- NOTE | 2020-11-27 13:02 | NUR ---
ERMD AT BEDSIDE TO DISCUSS POC.
[2020-11-27 13:05] VITALS: BP 147/63
--- NOTE | 2020-11-27 13:05 | NUR ---
REPORT FROM RATNA OLIVARES FOR TRANSFER OF PATIENT CARE.
--- NOTE | 2020-11-27 13:30 | NUR ---
IV removed with tip intact. Patient given discharge instructions and prescriptions and they have confirmed that they understand the instructions. Patient ambulatory with steady gait. NAD, all questions answered appropriately, denies additional needs at this time. No personal belongings left in room after discharge.
== END 2020-11-27 13:31 | disposition home or self-care (01) ==
LOC: ED 10:01
DX: R05 Cough (principal); I11.0 Hypertensive heart disease with heart failure; I50.1 Left ventricular failure, unspecified; Z20.822 Contact with and (suspected) exposure to COVID-19; I44.0 Atrioventricular block, first degree; J44.9 Chronic obstructive pulmonary disease, unspecified; Z86.718 Personal history of other venous thrombosis and embolism
CPT/HCPCS: 36415; 71045; 80053; 83880; 84484; 85025; 85610; 93005; 99285; U0003; U0005

== ENCOUNTER 2020-12-03 10:23 | Outpatient (CLI) | payer MEDICARE, MEDICAID ==
[~2020-12-03 10:23] MED LIST changes: -DOXY100C2 PO; +DOXY100C5 PO; -OXYC-380 PO; +OXYC-501 PO
[2020-12-03 11:06] LABS: INTERNATIONAL NORMALIZED RATIO 1.86 (0.93-1.1); PROTHROMBIN TIME 19.3 Seconds (9.6-11.5)
== END 2020-12-03 23:59 | disposition home or self-care (01) ==
LOC: LAB 10:23
PROVIDERS: ATTEND Internal Medicine Cardiovascular Disease
DX: I82.409 Acute embolism and thrombosis of unspecified deep veins of unspecified lower extremity (principal); Z79.01 Long term (current) use of anticoagulants
CPT/HCPCS: 36415; 85610

== ENCOUNTER 2020-12-17 09:55 | Outpatient (CLI) | payer MEDICARE, MEDICAID | END 2020-12-17 23:59 | disposition home or self-care (01) | LOC: CFH 09:55 | PROVIDERS: ATTEND Nurse Practitioner | DX: M85.89 Other specified disorders of bone density and structure, multiple sites (principal); N95.8 Other specified menopausal and perimenopausal disorders | CPT/HCPCS: 77080 ==